=== PATIENT | male | born 2000 | race Caucasian/White ===

== ENCOUNTER 2023-07-20 17:32 | Inpatient (IN) | payer OTHER, SELFPAY ==
[2023-07-20 17:43] VITALS: BP 154/94; PULSE 111; RESP 16; TEMP 36.9; O2SAT 95
--- NOTE | 2023-07-20 17:54 | ED_ITS ---
HPI - Abdominal Pain 2 General: Chief Complaint: Abdominal Pain Stated Complaint: abd pain Time Seen by Provider: 07/20/23 17:49 Source: patient Mode of arrival: ambulatory Limitations: no limitations History of Present Illness: 23-year-old male states he had epigastri c abdominal pain over the last 2 days. He states the pain is sharp in nature is much worse with eating he states it is improved with Mylanta is rates the pain a 2 out of 10 currently no vomiting no diarrhea denies any fevers no history of abdominal surgeries. He is not on any meds currently. Associated Symptoms: Denies chills, diarrhea, dysuria, fever(s), nausea and vomiting Review of Systems 2 Const: Denies: fever(s), chills, body aches or change in appetite ENMT: Denies: throat pain or dental pain Card: Denies: chest pain Resp: Denies: dyspnea GI: Reports: abdominal pain; Denies: nausea, vomiting or diarrhea : Denies: dysuria Musc: Denies: neck pain or back pain Skin/Breast: Denies: rash Neuro: Denies: headache(s) PFSH ED 2 PFSH: Social History Smoking and tobacco/nicotine status: never used tobacco/nicotine Physical Exam 2 Const: COMMON NORMALS: no acute distress, patient oriented x3 and healthy appearing HENMT: COMMON NORMALS: normocephalic and atraumatic HEAD & SCALP: n ormocephalic and atraumatic Neck/C-Spine: COMMON NORMALS: full ROM and supple Chest: COMMONS NORMALS: normal inspection of the chest and normal palpation of entire chest wall Resp: COMMON NORMALS: normal respiratory effort, No retractions, No use of accessory muscles and clear to auscultation bilaterally AUSCULTATION: clear to auscultation bilaterally Cardio: COMMON NORMALS: regular rate, regular rhythm and No murmurs present (Cardio) RATE: regular rate RHYTHM: regular rhythm GI: COMMON NORMALS: Normal to inspection, nondistended, normoactive bowel sounds present, Soft to palpation, non-tender and no masses PALPATION: Yes Soft to palpation Extremity: COMMON NORMALS: normal to inspection and full ROM Neuro: COMMON NORMALS: patient oriented x3, moves all extremities and no focal motor deficits Psych: COMMON NORMALS: mental status grossly normal, Normal thought process present and cooperative THOUGHT PROCESS: Normal thought process present Skin: COMMON NORMALS: no rashes or lesions noted and no wounds GENERAL SKIN EXAM: no rashes or lesions noted Course 2 Vital Signs: Vital signs: Vital Signs Temperature 98.4 F 07/20/23 17:43 Pulse Rate 108 H 07/20/23 19:35 Respiratory Rate 18 07/20/23 19:35 Blood Pressure 152/95 07/20/23 19:35 Pulse Oximetry 95 07/20/23 19:35 Oxygen Delivery Me thod Room Air 07/20/23 19:35 MDM - Abdominal Pain Medical Decision Making Patient presents here with pancreatitis as seen on CT scan he is getting elevated lipase as well as consistent with his abdominal pain spoke to the hospitalist will admit at this time. Medical Records I reviewed the patient's medical records. Lab Data I reviewed the patient's lab results. 07/20/23 17:53 07/20/23 17:53 Labs/Radiology: Radiology Impressions Abdomen/Pelvis CT 07/20/23 18:11 IMPRESSION: 1. Nonspecific moderate inflammatory changes in the upper central mesentery which appear to also involve the retroperitoneal reflection. Differential diagnosis includes pancreatitis, duodenitis, and nonspecific mesenteritis. Duodenitis is the favored diagnosis based on distribution of inflammatory change. Recommend correlation with laboratory evaluation and endoscopy if indicated.. 2. Trace fluid in the left paracolic gutter and pelvis likely tracking from central mesenteric pathology. COMMENTS: Consistent with the [employer]'s Incidental Findings Committee white paper (J Am Thelma Radiol 2018): Any incidental renal lesion less than 1 cm or classified as too small to characterize, or any incidental cystic renal lesion characterized as simple-appearing, is likely benign. No follow-up imaging is recommended for these lesions per consensus recommendations based on imaging criteria. Laboratory Results WBC 21.55 10^3/uL (3.29-11.43) H 07/20/23 17:53 RBC 5.47 10^6/uL (3.85-5.65) 07/20/23 17:53 Hgb 16.30 g/dL (11.27-16.99) 07/20/23 17:53 Hct 48.1 % (37-53) 07/20/23 17:53 MCV 87.9 fl (82-101) 07/20/23 17:53 MCH 29.8 pg (27-33) 07/20/23 17:53 MCHC 33.9 g/dL (30-55) 07/20/23 17:53 RDW 12.8 % (12.1-15.1) 07/20/23 17:53 Plt Count 336 10^3/cmm (157-399) 07/20/23 17:53 MPV 10.7 fL (7.4-10.4) H 07/20/23 17:53 Neut % (Auto) 85.8 % 07/20/23 17:53 Lymph % (Auto) 7.2 % 07/20/23 17:53 [place] % (Auto) 6.0 % 07/20/23 17:53 Eos % (Auto) 0.6 % 07/20/23 17:53 Baso % (Auto) 0.1 % 07/20/23 17:53 Neut # (Auto) 18.48 10^3/uL (1.8-7.7) H 07/20/23 17:53 Lymph # (Auto) 1.6 10^3/uL (0.8-4.8) 07/20/23 17:53 [place] # (Auto) 1.3 10^3/uL (0.2-0.9) H 07/20/23 17:53 Eos # (Auto) 0.1 10^3/uL (0.0-0.8) 07/20/23 17:53 Baso # (Auto) 0.0 10^3/uL (0.0-0.1) 07/20/23 17:53 Nucleated RBC % (auto) 0 % 07/20/23 17:53 Nucleated RBCs # 0.0 /100WBC 07/20/23 17:53 Sodium 137 mmol/L (136-145) 07/20/23 17:53 Potassium 3.3 mmol/L (3.5-5.1) L 07/20/23 17:53 Chloride 101 mmol/L (98-107) 07/20/23 17:53 Carbon Dioxide 24 mmol/L (22-29) 07/20/23 17:53 Anion Gap 15.3 (5-19) 07/20/23 17:53 BUN 10 mg/dL (6-20) 07/20/23 17:53 Creatinine 1.0 mg/dL (0.7-1.2) 07/20/23 17:53 GFR Calculation 93.4 mL/min (90-130) 07/20/23 17:53 Glucose 138 mg/dL (65-115) H 07/20/23 17:53 Calculated Osmolality 285 mOsm/kg (285-295) 07/20/23 17:53 Calcium 9.2 mg/dL (8.5-10.5) 07/20/23 17:53 Total Bilirubin 0.9 mg/dL (0.15-1.2) 07/20/23 17:53 AST 31 U/L (0-40) 07/20/23 17:53 ALT 79 U/L (0-41) H 07/20/23 17:53 Alkaline Phosphatase 129 U/L (40-130) 07/20/23 17:53 Total Protein 7.7 g/dL (6.6-8.7) 07/20/23 17:53 Albumin 4.1 g/dL (3.5-5.2) 07/20/23 17:53 Globulin 3.6 g/dL (1.3-4.6) 07/20/23 17:53 Lipase 253 U/L (13-60) H 07/20/23 17:53 Urine Color [place] (Yellow) A 07/20/23 18:54 Urine Appearance Clear (CLEAR) 07/20/23 18:54 Urine pH 5 (5-7) 07/20/23 18:54 Ur Specific [place] 1.020 (1.005-1.030) 07/20/23 18:54 Urine Protein Neg (Negative) 07/20/23 18:54 Urine Glucose (UA) Norm (Normal) 07/20/23 18:54 Urine Ketones Negative (Negative) 07/20/23 18:54 Urine Blood 3+ (Negative) H 07/20/23 18:54 Urine Nitrate Negative (Negative) 07/20/23 18:54 Urine Bilirubin 1+ (Negative) H 07/20/23 18:54 Urine Urobilinogen 1 mg/dL (Negative) H 07/20/23 18:54 Ur Leukocyte Esterase Negative (Negative) 07/20/23 18:54 Urine RBC 0-4 /hpf (0-2) H 07/20/23 18:54 Urine WBC 0-4 /hpf (0-5) H 07/20/23 18:54 Ur Squamous Epith Cells None /hpf (0-5) 07/20/23 18:54 Amorphous Sediment Not Reportable 07/20/23 18:54 Urine Bacteria Trace /hpf (NONE) 07/20/23 18:54 Urine Mucus 1+ /hpf 07/20/23 18:54 All radiology interpretation(s) finalized by discharge Discharge Plan Discharge Patient Disposition: Admitted As Inpatient Clinical Impression: Pancreatitis Condition: Stable Prescriptions: New hydrocodone-acetaminophen 5-325 mg tablet 1 tab PO Q6H PRN (Reason: pain) Qty: 14 0RF ondansetron 4 mg tablet,disintegrating 4 mg PO Q6H PRN (Reason: nausea and vomiting) Qty: 14 0RF Discharge Orders: Discharge ED (Routine); Ordered 07/20/23 Ordered By: Ish Singh Referrals: Nahun Juan DO [Primary Care Provider] - Discharge Diet: Advance as tolerated Discharge Activity: Resume usual activity Patient Instructions: Pancreatitis (ED), Opioid Safety Coding Level of Care Code ED Cafeteria Operator for Carlos Mckeon
[2023-07-20 18:09] LABS: Basophils % 0.1 %; Eosinophils # 0.1 10^3/uL (0.0-0.8); Eosinophils % 0.6 %; Hematocrit 48.1 % (37-53); Lymphocytes # 1.6 10^3/uL (0.8-4.8); Lymphocytes % 7.2 %; Mean Corpuscular HGB Conc 33.9 g/dL (30-55); Mean Corpuscular Hemoglobin 29.8 pg (27-33); Mean Corpuscular Volume 87.9 fl (82-101); Mean Platelet Volume 10.7 fL (7.4-10.4); Monocytes # 1.3 10^3/uL (0.2-0.9); Neutrophils # 18.48 10^3/uL (1.8-7.7); Neutrophils % 85.8 %; Nucleated Red Blood Cells % 0 %; Platelet Count 336 10^3/cmm (157-399); Red Blood Count 5.47 10^6/uL (3.85-5.65); Red Cell Distribution Width 12.8 % (12.1-15.1); White Blood Count 21.55 10^3/uL (3.29-11.43)
--- NOTE | 2023-07-20 18:11 | CTR_ITS ---
PROCEDURE INFORMATION: Exam: CT Abdomen And Pelvis With Contrast Exam date and time: 07/20/2023 6:23 PM Age: 23 years old Clinical indication: Abdominal pain; Generalized; Additional info: Abd pain TECHNIQUE: Imaging protocol: Computed tomography of the abdomen and pelvis with contrast. Radiation optimization: All CT scans at this facility use at least one of these dose optimization techniques: automated exposure control; mA and/or kV adjustment per patient size (includes targeted exams where dose is matched to clinical indication); or iterative reconstruction. Contrast material: OMNI 350; Contrast volume: 100 ml; Contrast route: INTRAVENOUS (IV); COMPARISON: No relevant prior studies available. RADIATION DOSE METRICS: Total DLP (mGy-cm): 1234 FINDINGS: Lungs: There are mild atelectatic changes in the blfs-[id number]-gvln-right lung bases. Liver: The liver is normal. No hepatic masses are identified. Gallbladder and bile ducts: The gallbladder is contracted. There is no ductal dilatation. Pancreas: Pancreas itself appears within normal limits. There is suggested peripancreatic inflammatory changes though these extend into the peritoneum and may be unrelated to the pancreas. Spleen: The spleen is normal. Adrenal glands: The adrenal glands are normal. Kidneys and ureters: Normal. No hydronephrosis. 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 8 mm low-density lesion in the right mid kidney too small for accurate characterization, likely representing a simple cyst. Stomach and bowel: Unremarkable. No obstruction. No mucosal thickening. Appendix: A normal appendix is identified. Intraperitoneal space: Some of the inflammatory change appears to be centered around the 3rd and 4th portions of the duodenal though also extends into the central mesentery. There is trace fluid tracking into left paracolic gutter and retroperitoneal reflection. Small pelvic free fluid. Vasculature: Unremarkable. No abdominal aortic aneurysm. Lymph nodes: Unremarkable. No enlarged lymph nodes. Urinary bladder: Unremarkable as visualized. Reproductive: Unremarkable as visualized. Bones/joints: Unremarkable. No acute fracture. Soft tissues: Unremarkable. CT/CT abdomen pelvis w con* [id number] IMPRESSION: 1. Nonspecific moderate inflammatory changes in the upper central mesentery which appear to also involve the retroperitoneal reflection. Differential diagnosis includes pancreatitis, duodenitis, and nonspecific mesenteritis. Duodenitis is the favored diagnosis based on distribution of inflammatory change. Recommend correlation with laboratory evaluation and endoscopy if indicated.. 2. Trace fluid in the left paracolic gutter and pelvis likely tracking from central mesenteric pathology. COMMENTS: Consistent with the [employer]'s Incidental Findings Committee white paper (J Am Thelma Radiol 2018): Any incidental renal lesion less than 1 cm or classified as too small to characterize, or any incidental cystic renal lesion characterized as simple-appearing, is likely benign. No follow-up imaging is recommended for these lesions per consensus recommendations based on imaging criteria.
[2023-07-20 18:16] VITALS: BP 139/90; PULSE 118; O2SAT 94
[2023-07-20] MEDS: sodium chloride 0.9% 1,000 ML 999 ML IV (18:30)
[2023-07-20] MEDS: lidocaine 2% viscous 15 ML, aluminum-mag hydrox-simethicon 30 ML, sucralfate oral liq 1 GM PO (18:31)
[2023-07-20] MEDS: ondansetron 2 mg/ML SDV 2 mL 4 MG IVP (18:31)
[2023-07-20] MEDS: pantoprazole 40 mg SDV 80 MG IVP (18:31)
[2023-07-20] MEDS: iohexol 350 mg/mL 500 mL Btl (per mL) IV (18:32)
[2023-07-20 18:34] LABS: Alanine Aminotransferase 79 U/L (0-41); Albumin Level 4.1 g/dL (3.5-5.2); Alkaline Phosphatase 129 U/L (40-130); Anion Gap 15.3 (5-19); Aspartate Amino Transferase 31 U/L (0-40); Blood Urea Nitrogen 10 mg/dL (6-20); Calcium 9.2 mg/dL (8.5-10.5); Carbon Dioxide 24 mmol/L (22-29); Chloride 101 mmol/L (98-107); Creatinine Clr Calc Pharmacy 158.3763; Globulin 3.6 g/dL (1.3-4.6); Glomerular Filtration Rate 93.4 mL/min (90-130); Glucose 138 mg/dL (65-115); Lipase 253 U/L (13-60); Osmolality Calculated 285 mOsm/kg (285-295); Potassium 3.3 mmol/L (3.5-5.1); Sodium 137 mmol/L (136-145); Total Bilirubin 0.9 mg/dL (0.15-1.2); Total Protein 7.7 g/dL (6.6-8.7)
[2023-07-20 18:56] VITALS: BP 134/96; PULSE 115; RESP 18; O2SAT 94
[2023-07-20 19:28] LABS: Add Urine Microscopic? YES; Bilirubin Urine 1+ (Negative); Blood Urine 3+ (Negative); Glucose Urine UA Norm (Normal); Ketones Urine Negative (Negative); Leukocyte Esterase Urine Negative (Negative); Nitrate Urine Negative (Negative); Protein Urine Neg (Negative); Urine Appearance Clear (CLEAR); Urine Color Orange (Yellow); Urobilinogen Urine 1 mg/dL (Negative); pH Urine 5 (5-7)
[2023-07-20 19:33] LABS: Bacteria Urine TRACE /hpf; Mucus Urine 1+ /hpf; RBC Urine 0-4 /hpf (0-2); WBC Urine 0-4 /hpf (0-5)
[2023-07-20 19:34] LABS: Add Urine Culture? No
[2023-07-20 19:35] VITALS: BP 152/95; PULSE 108; RESP 18; O2SAT 95
[2023-07-20 19:49] LABS: Cholesterol 140 mg/dL (0-200); Triglycerides 54 mg/dL (0-150)
[2023-07-20 20:37] LABS: Chol HDL Ratio 2.75 mg/dL (1.0-5.00); HDL Cholesterol 51 mg/dL (60-100); LDL Cholesterol Calculated 78 mg/dL (50-129); LDL HDL Ratio 1.53 RATIO (0.00-3.22)
[2023-07-20 21:50] VITALS: BMI 37.8
[2023-07-20 21:56] VITALS: BP 135/86; PULSE 108; RESP 19; TEMP 37.1; O2SAT 94
--- NOTE | 2023-07-20 22:00 | PC.NURSE ---
2145:Pt to room 276-2 via wheelchair with ED staff. Mother accompanying pt. Oriented to room and needs met at that time.
[2023-07-20 23:12] LABS: Amphetamines Screen Urine Negative (Negative); Barbiturates Screen Urine Negative (Negative); Benzodiazepines Screen Urine Negative (Negative); Cocaine Screen Urine Negative (Negative); Opiate Screen Urine Negative (Negative); PCP Screen Urine Negative (Negative); THC Screen Urine Negative (Negative)
[2023-07-20 23:14] LABS: Alcohol Level < 10 mg/dL (0-10)
[2023-07-20] MEDS: sodium chlor 0.9% + KCl 20 mEq 20 MEQ/1,000 ML BAG 100 MEQ IV (23:49)
[2023-07-21] VITALS: BP 142/89; PULSE 114; RESP 19; TEMP 37.2; O2SAT 94
[2023-07-21] MEDS: ketorolac 30 mg/mL INJ 15 MG IVP ×2 (00:42→17:02)
[2023-07-21 04:00] VITALS: BP 128/76; PULSE 98; RESP 16; TEMP 36.7; O2SAT 94
--- NOTE | 2023-07-21 04:30 | PM.HP ---
Providers/Chief Complaint Admitting Physician: Ciera Khan MD Primary Care Provider: Nahun Juan DO Chief Complaint: abd pain History of Present Illness Shyam Sr is a 23 year old male who is presenting to the hospital with chief complaint of abdominal pain that started 3 days ago. States that abdominal pain is generalized, located in the middle of this abdomen, used to be constant with intermittent worsening with changing position. No vomiting. He has been taking Mylanta at home with some partial relief in symptoms but not significantly so. Denies any diarrhea. Denies any other sick contacts with similar symptoms. No fever. It was noted to have leukocytosis and elevated lipase on lab work; CT of the abdomen and pelvis was performed which showed nonspecific inflammatory changes in the upper central mesentery which also appeared to involve the retroperitoneal reflection. There was noted to be some peripancreatic inflammatory changes also extending into the peritoneum. Differentials mainly for acute pancreatitis versus duodenitis with mesenteritis. He denies any known past history of gallstones. No history of alcohol or drug intake. Triglyceride level checked and normal Review of Systems General: Reports: 10 or more systems reviewed and unremarkable except in HPI and below Const: Denies: fever(s), chills or body aches Eyes: Denies: change in vision, blurry vision or photophobia ENMT: Reports: hoarseness; Denies: throat pain, enlarged tonsils, odynophagia or nasal congestion Card: Denies: chest pain, palpitations, irregular heart rhythm, edema, swelling of feet/ankles, lightheadedness, pre-syncope, dyspnea on exertion or orthopnea Resp: Denies: dyspnea, productive cough, non-productive cough, wheezing, stridor, pain on inspiration, change in phlegm color, hemoptysis or chest congestion GI: Denies: abdominal pain, nausea, vomiting, hematemesis, coffee ground emesis, dysphagia, heartburn, diarrhea, constipation, GI cramping, change in stool character, hematochezia or melena : Denies: flank pain, dysuria, urinary frequency, urinary urgency, urinary hesitancy or hematuria Musc: Denies: neck pain, back pain, extremity pain, joint swelling, joint warmth or deformity Neuro: Denies: headache(s), numbness in extremities, weakness in extremities, sensory changes, difficulty walking, frequent falls, dizziness, vertigo, behavioral changes, Slurred speech present or seizure-like activity Psych: Denies: anxiety, depression, suicidal ideation or homicidal ideation Endo: Denies: polyuria, polydipsia, tired all the time, cold intolerance or hot flashes Dc/Lymph: Denies: easy bruising or easy bleeding Medications/Allergies Home Medications Medication Instructions Recorded Confirmed Last Taken Type hydrocodone 5 mg-acetaminophen 325 1 tab PO Q6H PRN pain #14 tabs 07/20/23 Unknown Rx mg tablet ondansetron 4 mg disintegrating 4 mg PO Q6H PRN nausea and 07/20/23 Unknown Rx tablet vomiting #14 tabs Allergies Allergy/AdvReac Type Severity Reaction Status Date / Time clarithromycin [From Biaxin] Allergy RASH Verified 07/20/23 17:45 PFSH Acute PFSH: Social History Smoking and tobacco/nicotine status: never used tobacco/nicotine Vitals/I&O/Wt Last Vital Signs Temp 98.1 F 07/21/23 04:00 Pulse 98 07/21/23 04:00 Resp 16 07/21/23 04:00 BP 128/76 07/21/23 04:00 Pulse Ox 94 07/21/23 04:00 O2 Del Method Room Air 07/20/23 23:41 07/20/23 07/20/23 07/21/23 14:59 22:59 06:59 Intake Total 1000 / 1000 Balance 1000 / 1000 Weight last 48 hrs Weight 126.598 kg Weight 126.598 kg Weight 125.191 kg Physical Exam Narrative: General: No acute distress, AO x3 HEENT: PERRLA, pupils bilaterally equal and reactive, pallors not present Abdomen: Soft, tender to palpation in the epigastric region, no organomegaly, bowel sounds present Neuro: No focal deficits, no facial deformity, AO x3, power 5/5 in all limbs Data 07/21/23 05:10 07/21/23 05:10 Other Labs: Radiology Impressions Abdomen/Pelvis CT 07/20/23 18:11 IMPRESSION: 1. Nonspecific moderate inflammatory changes in the upper central mesentery which appear to also involve the retroperitoneal reflection. Differential diagnosis includes pancreatitis, duodenitis, and nonspecific mesenteritis. Duodenitis is the favored diagnosis based on distribution of inflammatory change. Recommend correlation with laboratory evaluation and endoscopy if indicated.. 2. Trace fluid in the left paracolic gutter and pelvis likely tracking from central mesenteric pathology. COMMENTS: Consistent with the [employer]'s Incidental Findings Committee white paper (J Am Thelma Radiol 2018): Any incidental renal lesion less than 1 cm or classified as too small to characterize, or any incidental cystic renal lesion characterized as simple-appearing, is likely benign. No follow-up imaging is recommended for these lesions per consensus recommendations based on imaging criteria. Laboratory Results WBC 20.37 10^3/uL (3.29-11.43) H 07/21/23 05:10 RBC 5.05 10^6/uL (3.85-5.65) 07/21/23 05:10 Hgb 15.00 g/dL (11.27-16.99) 07/21/23 05:10 Hct 45.1 % (37-53) 07/21/23 05:10 MCV 89.3 fl (82-101) 07/21/23 05:10 MCH 29.7 pg (27-33) 07/21/23 05:10 MCHC 33.3 g/dL (30-55) 07/21/23 05:10 RDW 12.9 % (12.1-15.1) 07/21/23 05:10 Plt Count 305 10^3/cmm (157-399) 07/21/23 05:10 MPV 10.5 fL (7.4-10.4) H 07/21/23 05:10 Neut % (Auto) 81.5 % 07/21/23 05:10 Lymph % (Auto) 9.2 % 07/21/23 05:10 [place] % (Auto) 7.8 % 07/21/23 05:10 Eos % (Auto) 0.9 % 07/21/23 05:10 Baso % (Auto) 0.2 % 07/21/23 05:10 Neut # (Auto) 16.59 10^3/uL (1.8-7.7) H 07/21/23 05:10 Lymph # (Auto) 1.9 10^3/uL (0.8-4.8) 07/21/23 05:10 [place] # (Auto) 1.6 10^3/uL (0.2-0.9) H 07/21/23 05:10 Eos # (Auto) 0.2 10^3/uL (0.0-0.8) 07/21/23 05:10 Baso # (Auto) 0.0 10^3/uL (0.0-0.1) 07/21/23 05:10 Nucleated RBC % (auto) 0 % 07/21/23 05:10 Nucleated RBCs # 0.0 /100WBC 07/21/23 05:10 ESR 27 mm/hr (0-10) H 07/21/23 05:10 Sodium 139 mmol/L (136-145) 07/21/23 05:10 Potassium 4.1 mmol/L (3.5-5.1) 07/21/23 05:10 Chloride 102 mmol/L (98-107) 07/21/23 05:10 Carbon Dioxide 25 mmol/L (22-29) 07/21/23 05:10 Anion Gap 16.1 (5-19) 07/21/23 05:10 BUN 12 mg/dL (6-20) 07/21/23 05:10 Creatinine 1.0 mg/dL (0.7-1.2) 07/21/23 05:10 GFR Calculation 93.4 mL/min (90-130) 07/21/23 05:10 Glucose 80 mg/dL (65-115) 07/21/23 05:10 Calculated Osmolality 287 mOsm/kg (285-295) 07/21/23 05:10 Lactic Acid 1.1 mmol/L (0.5-2.2) 07/21/23 05:10 Calcium 9.0 mg/dL (8.5-10.5) 07/21/23 05:10 Total Bilirubin 1.0 mg/dL (0.15-1.2) 07/21/23 05:10 AST 18 U/L (0-40) 07/21/23 05:10 ALT 53 U/L (0-41) H 07/21/23 05:10 Alkaline Phosphatase 119 U/L (40-130) 07/21/23 05:10 C-Reactive Protein 208.3 mg/L (0.0-4.9) H 07/21/23 05:10 Total Protein 7.4 g/dL (6.6-8.7) 07/21/23 05:10 Albumin 3.8 g/dL (3.5-5.2) 07/21/23 05:10 Globulin 3.6 g/dL (1.3-4.6) 07/21/23 05:10 Triglycerides 54 mg/dL (0-150) 07/20/23 19: Cholesterol 140 mg/dL (0-200) 07/20/23 19: LDL Cholesterol, Calc 78 mg/dL (50-129) 07/20/23 19: HDL Cholesterol 51 mg/dL (60-100) L 07/20/23 19: LDL/HDL Ratio 1.53 RATIO (0.00-3.22) 07/20/23 19: Cholesterol/HDL Ratio 2.75 mg/dL (1.0-5.00) 07/20/23 19:28 Lipase 253 U/L (13-60) H 07/20/23 17:53 TSH 2.68 uIU/mL (0.27-4.20) 07/21/23 05:10 Urine Color [place] (Yellow) A 07/20/23 18:54 Urine Appearance Clear (CLEAR) 07/20/23 18:54 Urine pH 5 (5-7) 07/20/23 18:54 Ur Specific [place] 1.020 (1.005-1.030) 07/20/23 18:54 Urine Protein Neg (Negative) 07/20/23 18:54 Urine Glucose (UA) Norm (Normal) 07/20/23 18:54 Urine Ketones Negative (Negative) 07/20/23 18:54 Urine Blood 3+ (Negative) H 07/20/23 18:54 Urine Nitrate Negative (Negative) 07/20/23 18:54 Urine Bilirubin 1+ (Negative) H 07/20/23 18:54 Urine Urobilinogen 1 mg/dL (Negative) H 07/20/23 18:54 Ur Leukocyte Esterase Negative (Negative) 07/20/23 18:54 Urine RBC 0-4 /hpf (0-2) H 07/20/23 18:54 Urine WBC 0-4 /hpf (0-5) H 07/20/23 18:54 Ur Squamous Epith Cells None /hpf (0-5) 07/20/23 18:54 Amorphous Sediment Not Reportable 07/20/23 18:54 Urine Bacteria Trace /hpf (NONE) 07/20/23 18:54 Urine Mucus 1+ /hpf 07/20/23 18:54 Urine Opiates Screen Negative ng/mL (Negative) 07/20/23 18:54 Ur Barbiturates Screen Negative ng/mL (Negative) 07/20/23 18:54 Ur Phencyclidine Scrn Negative ng/mL (Negative) 07/20/23 18:54 Ur Amphetamines Screen Negative ng/mL (Negative) 07/20/23 18:54 U Benzodiazepines Scrn Negative ng/mL (Negative) 07/20/23 18:54 Urine Cocaine Screen Negative ng/mL (Negative) 07/20/23 18:54 U Marijuana (THC) Screen Negative ng/mL (Negative) 07/20/23 18:54 Ethyl Alcohol < 10 mg/dL (0-10) 07/20/23 17:53 A&P Assessment and plan (1) Pancreatitis: Admit to [facility] IV fluid with normal saline + 20 KCL at 100 cc an hour N.p.o. for bowel rest Pain control with as needed morphine alternating with IV Toradol. As needed Tylenol for pain and fever. As needed Zofran for nausea management. CT of the abdomen and pelvis shows signs of acute pancreatitis vs non specific mesenteritis. Given elevated lipase and peripancreatic inflammation, favor pancreatitis as likely diagnosis No obvious inciting cause -biliary tree is nondilated, triglyceride within normal range. Denies any recent alcohol consumption, will check alcohol level and urine drug screen. Does not take any regular medications at home, unlikely to be drug-induced Check NAMRATA panel for potential autoimmune process Elevated white blood cell count likely as a result of dehydration/SIRS. Will monitor. Holding off on antibiotics for now. Qualifiers: Acute pancreatitis complication: unspecified Chronicity: acute Pancreatitis type: unspecified pancreatitis type Qualified Code(s): K85.90 - Acute pancreatitis without necrosis or infection, unspecified Plan DVT prophylaxis: SCDs, overall low risk Full code Attestations Medical Necessity Statement*: Greater than 2 midnight stay is anticipated Coding Level of Care Code Acute Code for [facility] Diagnoses Pancreatitis K85.90 Acute pancreatitis complication: unspecified Chronicity: acute Pancreatitis type: unspecified pancreatitis type
[2023-07-21 05:23] LABS: Basophils % 0.2 %; Eosinophils # 0.2 10^3/uL (0.0-0.8); Eosinophils % 0.9 %; Erythrocyte Sedimentation Rate 27 mm/hr (0-10); Hematocrit 45.1 % (37-53); Lymphocytes # 1.9 10^3/uL (0.8-4.8); Lymphocytes % 9.2 %; Mean Corpuscular HGB Conc 33.3 g/dL (30-55); Mean Corpuscular Hemoglobin 29.7 pg (27-33); Mean Corpuscular Volume 89.3 fl (82-101); Mean Platelet Volume 10.5 fL (7.4-10.4); Monocytes # 1.6 10^3/uL (0.2-0.9); Monocytes % 7.8 %; Neutrophils # 16.59 10^3/uL (1.8-7.7); Neutrophils % 81.5 %; Nucleated Red Blood Cells % 0 %; Platelet Count 305 10^3/cmm (157-399); Red Blood Count 5.05 10^6/uL (3.85-5.65); Red Cell Distribution Width 12.9 % (12.1-15.1); White Blood Count 20.37 10^3/uL (3.29-11.43)
[2023-07-21 05:41] LABS: Lactic Sepsis W/Reflex 1.1 mmol/L (0.5-2.2)
[2023-07-21 05:49] LABS: Alanine Aminotransferase 53 U/L (0-41); Albumin Level 3.8 g/dL (3.5-5.2); Alkaline Phosphatase 119 U/L (40-130); Anion Gap 16.1 (5-19); Aspartate Amino Transferase 18 U/L (0-40); Blood Urea Nitrogen 12 mg/dL (6-20); C Reactive Protein 208.3 mg/L (0.0-4.9); Carbon Dioxide 25 mmol/L (22-29); Chloride 102 mmol/L (98-107); Creatinine Clr Calc Pharmacy 159.2987; Globulin 3.6 g/dL (1.3-4.6); Glomerular Filtration Rate 93.4 mL/min (90-130); Glucose 80 mg/dL (65-115); Osmolality Calculated 287 mOsm/kg (285-295); Potassium 4.1 mmol/L (3.5-5.1); Sodium 139 mmol/L (136-145); Thyroid Stimulating Hormone 2.68 uIU/mL (0.27-4.20); Total Protein 7.4 g/dL (6.6-8.7)
[2023-07-21 08:00] VITALS: BP 132/80; PULSE 96; RESP 16; TEMP 36.9; O2SAT 96
[2023-07-21] MEDS: sodium chlor 0.9% + KCl 20 mEq 20 MEQ/1,000 ML BAG 100 MEQ IV ×2 (10:00→20:24)
[2023-07-21 11:18] VITALS: BP 125/70; PULSE 98; RESP 16; TEMP 37.3; O2SAT 94
[2023-07-21] MEDS: piperacillin-tazobactam 3.375 GM in sodium chloride 0.9% (plus) 50 ML IV ×2 (11:29→20:24)
--- NOTE | 2023-07-21 15:03 | P.PN_ITS ---
Subjective 2 Subjective: Admitted overnight. H&P labs appreciated. Examination patient lying comfortably in bed. States pain is well-controlled. Denies any nausea. Started on clear liquid diet today and is able to tolerate. Vitals/I&O/Wt Last Vital Signs Temp 99.2 F 07/21/23 11:18 Pulse 98 07/21/23 11:18 Resp 16 07/21/23 11:18 BP 125/70 07/21/23 11:18 Pulse Ox 94 07/21/23 11:18 O2 Del Method Room Air 07/21/23 11:18 07/21/23 07/21/23 07/21/23 06:59 14:59 22:59 Intake Total 1959 Balance 1959 Weight last 48 hrs Weight 126.598 kg Weight 126.598 kg Weight 125.191 kg Physical Exam 2 Narrative: General: No acute distress, AO x3 HEENT: PERRLA, pupils bilaterally equal and reactive, pallors not present Abdomen: Soft, tender to palpation in the epigastric region, no organomegaly, bowel sounds present Neuro: No focal deficits, no facial deformity, AO x3, power 5/5 in all limbs Data 07/21/23 05:10 07/21/23 05:10 A&P Assessment and plan (1) Pancreatitis: Unknown cause. Triglyceride levels normal. Denies any history of alcohol use or smoking. LFTs normal. Denies any history of gallstones. Biliary tree nondilated. NAMRATA panel pending. Tolerating clear liquid diet. Will plan to continue clear liquid diet for now. IV hydration with normal saline with potassium at 100 cc/h. Zofran as needed, IV Protonix. Toradol as needed for pain. Patient does have mild leukocytosis which is most likely reactionary but given significant pancreatitis for now will empirically cover with IV Zosyn. Patient remains afebrile will discontinue within next 24 hours. Qualifiers: Acute pancreatitis complication: unspecified Chronicity: acute P ancreatitis type: unspecified pancreatitis type Qualified Code(s): K85.90 - Acute pancreatitis without necrosis or infection, unspecified Plan DVT prophylaxis: SCDs, overall low risk Full code Attestations 2 Medical Necessity Statement*: Requires further hospitalization for management of pancreatitis while diet is gradually advanced Diagnoses Pancreatitis K85.90 Acute pancreatitis complication: unspecified Chronicity: acute Pancreatitis type: unspecified pancreatitis type
[2023-07-21 16:00] VITALS: BP 127/82; PULSE 92; RESP 16; TEMP 37.1; O2SAT 94
[2023-07-21] MEDS: pantoprazole 40 mg SDV IVP (17:02)
[2023-07-21 20:00] VITALS: BP 110/70; PULSE 82; RESP 18; TEMP 36.6; O2SAT 96
[2023-07-22] VITALS: BP 120/78; PULSE 67; RESP 17; TEMP 36.4; O2SAT 96
[2023-07-22] MEDS: piperacillin-tazobactam 3.375 GM in sodium chloride 0.9% (plus) 50 ML IV ×2 (03:00→11:03)
[2023-07-22 04:00] VITALS: BP 122/80; PULSE 76; RESP 15; TEMP 36.6; O2SAT 15
[2023-07-22 06:00] VITALS: BMI 37.8
[2023-07-22] MEDS: sodium chlor 0.9% + KCl 20 mEq 20 MEQ/1,000 ML BAG 100 MEQ IV (06:43)
[2023-07-22 07:05] LABS: Basophils # 0.1 10^3/uL (0.0-0.1); Basophils % 0.3 %; Eosinophils # 0.3 10^3/uL (0.0-0.8); Eosinophils % 2.1 %; Hematocrit 43.6 % (37-53); Lymphocytes # 1.9 10^3/uL (0.8-4.8); Lymphocytes % 12.6 %; Mean Corpuscular HGB Conc 33.3 g/dL (30-55); Mean Corpuscular Hemoglobin 29.5 pg (27-33); Mean Corpuscular Volume 88.6 fl (82-101); Mean Platelet Volume 10.9 fL (7.4-10.4); Monocytes # 1.2 10^3/uL (0.2-0.9); Neutrophils # 11.43 10^3/uL (1.8-7.7); Neutrophils % 76.7 %; Nucleated Red Blood Cells % 0 %; Platelet Count 268 10^3/cmm (157-399); Red Blood Count 4.92 10^6/uL (3.85-5.65); Red Cell Distribution Width 12.6 % (12.1-15.1)
[2023-07-22 07:18] VITALS: BP 149/92; PULSE 95; RESP 16; TEMP 36.9; O2SAT 98
[2023-07-22 08:12] LABS: Alanine Aminotransferase 35 U/L (0-41); Albumin Level 3.7 g/dL (3.5-5.2); Alkaline Phosphatase 109 U/L (40-130); Anion Gap 15.9 (5-19); Aspartate Amino Transferase 12 U/L (0-40); Blood Urea Nitrogen 8 mg/dL (6-20); Carbon Dioxide 25 mmol/L (22-29); Chloride 103 mmol/L (98-107); Creatinine Clr Calc Pharmacy 159.2685; Globulin 3.8 g/dL (1.3-4.6); Glomerular Filtration Rate 93.4 mL/min (90-130); Glucose 93 mg/dL (65-115); Osmolality Calculated 288 mOsm/kg (285-295); Potassium 3.9 mmol/L (3.5-5.1); Sodium 140 mmol/L (136-145); Total Bilirubin 0.9 mg/dL (0.15-1.2); Total Protein 7.5 g/dL (6.6-8.7)
--- NOTE | 2023-07-22 09:38 | P.DS_ITS ---
Discharge Providers Date of Admission: 07/20/23 20:21 Date of Discharge: July 22, 2023 Attending Provider at Admission: Abilio Beckford MD Attending Provider at Discharge: Abilio Beckford MD Primary Care Provider: Nahun Juan DO Diagnoses at Discharge Discharge Diagnosis (1) Pancreatitis: Status: Acute Qualifiers: Acute pancreatitis complication: unspecified Chronicity: acute Pancreatitis type: unspecified pancreatitis type Qualified Code(s): K85.90 - Acute pancreatitis without necrosis or infection, unspecified Reason for Visit Reason for Visit: abd pain Brief History: Shyam Sr is a 23 year old male who is presenting to the hospital with chief complaint of abdominal pain that started 3 days ago. States that abdominal pain is generalized, located in the middle of this abdomen, used to be constant with intermittent worsening with changing position. No vomiting. He has been taking Mylanta at home with some partial relief in symptoms but not significantly so. Denies any diarrhea. Denies any other sick contacts with similar symptoms. No fever. It was noted to have leukocytosis and elevated lipase on lab work; CT of the abdomen and pelvis was performed which showed nonspecific inflammatory changes in the upper central mesentery which also appeared to involve the retroperitoneal reflection. There was noted to be some peripancreatic inflammatory changes also extending into the peritoneum. Differentials mainly for acute pancreatitis versus duodenitis with mesenteritis. He denies any known past history of gallstones. No history of alcohol or drug intake. Triglyceride level checked and normal Hospital Course Hospital Course Patient was admitted to the hospital further evaluation and management of abdominal pain in setting of pancreatitis. He was treated conservatively by keeping nothing by mouth, IV hydration and pain management. Patient responded to the treatment well and has not needed any pain medication in the last 12 hours. He has been tolerating full liquid diet well. He has been discharged in hemodynamically stable condition on full liquid diet with advised to continue full liquid diet for next 2 to 3 days and then to a softer diet for next 10 days with advised to get back on his regular diet within next 2 weeks. He is to take Protonix daily with Zofran as needed. Toradol has also been prescribed 3 times a day as needed for pain for next 3 days. Discharge plan discussed in detail with patient and patient's mother at bedside. All the questions were answered. Physical Exam Narrative: General: No acute distress, AO x3 HEENT: PERRLA, pupils bilaterally equal and reactive, pallors not present Abdomen: Soft, tender to palpation in the epigastric region, no organomegaly, bowel sounds present Neuro: No focal deficits, no facial deformity, AO x3, power 5/5 in all limbs Discharge Data Studies Completed and Pending Completed Studies During Hospitalization Category Date Time Status CT abdomen pelvis w con* [id number] Stat Cat Scan 07/20/23 18:11 Completed Pending at discharge Category Date Time Status NAMRATA Profile Rheumatology AM LABS Lab 07/21/23 05:10 Received Radiology Impressions Abdomen/Pelvis CT 07/20/23 18:11 IMPRESSION: 1. Nonspecific moderate inflammatory changes in the upper central mesentery which appear to also involve the retroperitoneal reflection. Differential diagnosis includes pancreatitis, duodenitis, and nonspecific mesenteritis. Duodenitis is the favored diagnosis based on distribution of inflammatory change. Recommend correlation with laboratory evaluation and endoscopy if indicated.. 2. Trace fluid in the left paracolic gutter and pelvis likely tracking from central mesenteric pathology. COMMENTS: Consistent with the [employer]'s Incidental Findings Committee white paper (J Am Thelma Radiol 2018): Any incidental renal lesion less than 1 cm or classified as too small to characterize, or any incidental cystic renal lesion characterized as simple-appearing, is likely benign. No follow-up imaging is recommended for these lesions per consensus recommendations based on imaging criteria. Laboratory Results WBC 14.90 10^3/uL (3.29-11.43) H 07/22/23 06:52 Corrected WBC Cancelled 07/22/23 06:18 RBC 4.92 10^6/uL (3.85-5.65) 07/22/23 06:52 Hgb 14.50 g/dL (11.27-16.99) 07/22/23 06:52 Hct 43.6 % (37-53) 07/22/23 06:52 MCV 88.6 fl (82-101) 07/22/23 06:52 MCH 29.5 pg (27-33) 07/22/23 06:52 MCHC 33.3 g/dL (30-55) 07/22/23 06:52 RDW 12.6 % (12.1-15.1) 07/22/23 06:52 Plt Count 268 10^3/cmm (157-399) 07/22/23 06:52 MPV 10.9 fL (7.4-10.4) H 07/22/23 06:52 Gran % Cancelled 07/22/23 06:18 Neut % (Auto) 76.7 % 07/22/23 06:52 Lymph % (Auto) 12.6 % 07/22/23 06:52 [place] % (Auto) 8.0 % 07/22/23 06:52 Eos % (Auto) 2.1 % 07/22/23 06:52 Baso % (Auto) 0.3 % 07/22/23 06:52 Neut # (Auto) 11.43 10^3/uL (1.8-7.7) H 07/22/23 06:52 Lymph # (Auto) 1.9 10^3/uL (0.8-4.8) 07/22/23 06:52 [place] # (Auto) 1.2 10^3/uL (0.2-0.9) H 07/22/23 06:52 Eos # (Auto) 0.3 10^3/uL (0.0-0.8) 07/22/23 06:52 Baso # (Auto) 0.1 10^3/uL (0.0-0.1) 07/22/23 06:52 Absolute Gran (auto) Cancelled 07/22/23 06:18 Nucleated RBC % (auto) 0 % 07/22/23 06:52 Nucleated RBCs # 0.0 /100WBC 07/22/23 06:52 ESR 27 mm/hr (0-10) H 07/21/23 05:10 Sodium 140 mmol/L (136-145) 07/22/23 07:23 Potassium 3.9 mmol/L (3.5-5.1) 07/22/23 07:23 Chloride 103 mmol/L (98-107) 07/22/23 07:23 Carbon Dioxide 25 mmol/L (22-29) 07/22/23 07:23 Anion Gap 15.9 (5-19) 07/22/23 07:23 BUN 8 mg/dL (6-20) 07/22/23 07:23 Creatinine 1.0 mg/dL (0.7-1.2) 07/22/23 07:23 GFR Calculation 93.4 mL/min (90-130) 07/22/23 07:23 Glucose 93 mg/dL (65-115) 07/22/23 07:23 Calculated Osmolality 288 mOsm/kg (285-295) 07/22/23 07:23 Lactic Acid 1.1 mmol/L (0.5-2.2) 07/21/23 05:10 Calcium 9.0 mg/dL (8.5-10.5) 07/22/23 07:23 Total Bilirubin 0.9 mg/dL (0.15-1.2) 07/22/23 07:23 AST 12 U/L (0-40) 07/22/23 07:23 ALT 35 U/L (0-41) 07/22/23 07:23 Alkaline Phosphatase 109 U/L (40-130) 07/22/23 07:23 C-Reactive Protein 208.3 mg/L (0.0-4.9) H 07/21/23 05:10 Total Protein 7.5 g/dL (6.6-8.7) 07/22/23 07:23 Albumin 3.7 g/dL (3.5-5.2) 07/22/23 07:23 Globulin 3.8 g/dL (1.3-4.6) 07/22/23 07:23 Triglycerides 54 mg/dL (0-150) 07/20/23 19: Cholesterol 140 mg/dL (0-200) 07/20/23 19:28 LDL Cholesterol, Calc 78 mg/dL (50-129) 07/20/23 19: HDL Cholesterol 51 mg/dL (60-100) L 07/20/23 19:28 LDL/HDL Ratio 1.53 RATIO (0.00-3.22) 07/20/23 19: Cholesterol/HDL Ratio 2.75 mg/dL (1.0-5.00) 07/20/23 19:28 Lipase 253 U/L (13-60) H 07/20/23 17:53 TSH 2.68 uIU/mL (0.27-4.20) 07/21/23 05:10 Urine Color [place] (Yellow) A 07/20/23 18:54 Urine Appearance Clear (CLEAR) 07/20/23 18:54 Urine pH 5 (5-7) 07/20/23 18:54 Ur Specific [place] 1.020 (1.005-1.030) 07/20/23 18:54 Urine Protein Neg (Negative) 07/20/23 18:54 Urine Glucose (UA) Norm (Normal) 07/20/23 18:54 Urine Ketones Negative (Negative) 07/20/23 18:54 Urine Blood 3+ (Negative) H 07/20/23 18:54 Urine Nitrate Negative (Negative) 07/20/23 18:54 Urine Bilirubin 1+ (Negative) H 07/20/23 18:54 Urine Urobilinogen 1 mg/dL (Negative) H 07/20/23 18:54 Ur Leukocyte Esterase Negative (Negative) 07/20/23 18:54 Urine RBC 0-4 /hpf (0-2) H 07/20/23 18:54 Urine WBC 0-4 /hpf (0-5) H 07/20/23 18:54 Ur Squamous Epith Cells None /hpf (0-5) 07/20/23 18:54 Amorphous Sediment Not Reportable 07/20/23 18:54 Urine Bacteria Trace /hpf (NONE) 07/20/23 18:54 Urine Mucus 1+ /hpf 07/20/23 18:54 Urine Opiates Screen Negative ng/mL (Negative) 07/20/23 18:54 Ur Barbiturates Screen Negative ng/mL (Negative) 07/20/23 18:54 Ur Phencyclidine Scrn Negative ng/mL (Negative) 07/20/23 18:54 Ur Amphetamines Screen Negative ng/mL (Negative) 07/20/23 18:54 U Benzodiazepines Scrn Negative ng/mL (Negative) 07/20/23 18:54 Urine Cocaine Screen Negative ng/mL (Negative) 07/20/23 18:54 U Marijuana (THC) Screen Negative ng/mL (Negative) 07/20/23 18:54 Ethyl Alcohol < 10 mg/dL (0-10) 07/20/23 17:53 Vitals Last Vital Signs Temp 98.4 F 07/22/23 07:18 Pulse 95 07/22/23 07:18 Resp 16 07/22/23 07:18 BP 149/92 07/22/23 07:18 Pulse Ox 98 07/22/23 07:18 O2 Del Method Room Air 07/22/23 07:18 Discharge Plan Discharge Patient Disposition: Home Condition: Stable Prescriptions: New hydrocodone-acetaminophen 5-325 mg tablet 1 tab PO Q6H PRN (Reason: pain) Qty: 14 0RF ondansetron 4 mg tablet,disintegrating 4 mg PO Q6H PRN (Reason: nausea and vomiting) Qty: 14 0RF Protonix 40 mg tablet,delayed release (DR/EC) 40 mg PO QAM 28 Days Qty: 28 0RF ondansetron HCl 4 mg tablet 4 mg PO DAILY PRN (Reason: nausea and vomiting) 4 Days Qty: 14 0RF ketorolac 10 mg tablet 10 mg PO Q8H PRN (Reason: pain) 3 Days Qty: 10 0RF Continued multivitamin Tablet 1 tab PO QAM Discharge Orders: Discharge Order (Routine); Ordered 07/22/23 Ordered By: Abilio Beckford Referrals: Ricardo Burns MD [Physician] - 07/27/23 11:00 am Discharge Diet: Advance as tolerated and Full LIquid Discharge Activity: Resume usual activity Patient Instructions: Hydrocodone/Acetaminophen (By mouth), Ketorolac (By mouth) (Toradol), Ondansetron (By mouth), Pantoprazole (By mouth), Pancreatitis (ED), Opioid Safety, Pancreatitis Activity Restrictions/Additional Instructions: Please take liquid diet for next 2 to 4 days and then advance to soft/brat diet including bananas, toast, applesauce for next 1 week and then advance to a regular diet within next 2 weeks. Discharge Attestations Time Spent in Discharge Care*: greater than 30 min Specific Discharge Activities: educating patient, educating and/or supporting family/caregiver, discussing with pcp/other providers, discussing with upper caser/social workers/dc planners, documenting/other paperwork and evaluating patient/reviewing data Status at Discharge: Cognitive status at discharge: cognitively intact , Behavioral status at discharge: cooperative , Functional status at discharge: independent ambulation , Overall status at discharge: patient is back to baseline Quality Metrics Clinical Quality Measures [ No reported AMI, CVA or VTE this stay] Coding Level of Care Code 50282 Total time (in minutes) for Discharge: 50 Diagnoses Pancreatitis K85.90 Acute pancreatitis complication: unspecified Chronicity: acute Pancreatitis type: unspecified pancreatitis type
[2023-07-22 11:26] VITALS: BP 125/84; PULSE 80; RESP 16; TEMP 36.9; O2SAT 97
[2023-07-22 12:44] LABS: CENTROMERE B ANTIBODY <1.0 NEG AI (<1.0 NEG); JO-1 ANTIBODY <1.0 NEG AI (<1.0 NEG); RNP ANTIBODY <1.0 NEG AI (<1.0 NEG); SCL-70 ANTIBODY <1.0 NEG AI (<1.0 NEG); SJOGREN'S ANTIBODY (SS-A) <1.0 NEG AI (<1.0 NEG); SM ANTIBODY <1.0 NEG AI (<1.0 NEG); SS-B <1.0 NEG AI (<1.0 NEG)
[2023-07-22 12:54] VITALS: BP 125/84; PULSE 80; RESP 16; TEMP 36.9; O2SAT 97
[2023-07-22 16:45] LABS: ANA SCREEN, IFA NEGATIVE (NEGATIVE)
[2023-07-23 13:39] LABS: COMPLEMENT, TOTAL (CH50) 59 U/mL (31-60)
[2023-07-23 14:34] LABS: COMPLEMENT COMPONENT C3C 167 mg/dL (82-185); COMPLEMENT COMPONENT C4C 42 mg/dL (15-53)
[2023-07-26 08:49] LABS: THYROID PEROXIDASE ANTIBODIES 1 IU/mL (<9)
== END 2023-07-22 12:55 | disposition home or self-care (01) | DRG 440 ==
LOC: ER 19:48 → MEDSURG 20:22
PROVIDERS: Student in an Organized Health Care Education/Training Program; Admitting Provider Student in an Organized Health Care Education/Training Program; Emergency Provider Emergency Medicine; PCP Family Medicine; Visit Provider Student in an Organized Health Care Education/Training Program
DX: K85.90 Acute pancreatitis without necrosis or infection, unspecified (principal)
CPT/HCPCS: 36415; 74177; 80053; 80061; 80306; 80307; 81001; 83605; 83690; 84443; 85025; 85651; 86140; 86160; 86162; 86235; 86255; 86376; 96361; 96374; 96375; 99285; C9113; J1885; J2405; J2543; J3480; J7030; Q9967

== ENCOUNTER 2023-12-27 01:11 | Emergency (ER) | payer SELFPAY ==
[2023-12-27 01:25] VITALS: BP 160/87; PULSE 85; RESP 17; TEMP 37.2; O2SAT 99; BMI 38.4
[2023-12-27 01:56] LABS: Glucose Urine UA Norm (Normal); Protein Urine 2+ (Negative); Urine Appearance Turbid (CLEAR); Urine Color Dark Yellow (Yellow); pH Urine 5 (5-7)
[2023-12-27 01:57] LABS: Add Urine Microscopic? YES; Amorphous Sediment Urine 1+ /hpf; Bacteria Urine 1+ /hpf; Bilirubin Urine 1+ (Negative); Blood Urine 3+ (Negative); Coarse Granular Casts Urine 0-4 /lpf; Ketones Urine Negative (Negative); Leukocyte Esterase Urine Trace (Negative); Mucus Urine TRACE /hpf; Nitrate Urine Negative (Negative); RBC Urine 80-100 /hpf (0-2); Squamous Epithelial Cell Urine 0-4 /hpf (0-5); Urobilinogen Urine 1 mg/dL (Negative); WBC Urine 15-25 /hpf (0-5)
[2023-12-27 01:58] LABS: Add Urine Culture? Yes
--- NOTE | 2023-12-27 02:27 | CTR_ITS ---
PROCEDURE INFORMATION: Exam: CT Abdomen And Pelvis Without Contrast Exam date and time: 12/27/2023 2:48 AM Age: 23 years old Clinical indication: Abdominal pain; Patient HX: Left flank pain with hematuria; Additional info: Flank pain, hematuria TECHNIQUE: Imaging protocol: Computed tomography of the abdomen and pelvis without contrast. Radiation optimization: All CT scans at this facility use at least one of these dose optimization techniques: automated exposure control; mA and/or kV adjustment per patient size (includes targeted exams where dose is matched to clinical indication); or iterative reconstruction. COMPARISON: CT abdomen pelvis w con* [id number] 07/20/2023 6:23 PM RADIATION DOSE METRICS: Total DLP (mGy-cm): 1160.01 FINDINGS: Lungs: Lung bases are clear as visualized. Liver: There is diffuse fatty infiltration of the liver. The liver is otherwise normal. Gallbladder and biliary ducts: Normal. No calcified stones. No ductal dilation. Pancreas: Normal. No ductal dilation. Spleen: Normal. No splenomegaly. Adrenal glands: Normal. No mass. Kidneys and ureters: There are bilateral nonobstructing renal calculi. There is mild hydronephrosis and hydroureter on the left secondary to a 2-3 mm stone within the distal left ureter. Stomach and bowel: Unremarkable. No obstruction. No mucosal thickening. Appendix: No evidence of appendicitis. Intraperitoneal space: Unremarkable. No free air. No significant fluid collection. Vasculature: Unremarkable. No abdominal aortic aneurysm. Lymph nodes: Unremarkable. No enlarged lymph nodes. Urinary bladder: Unremarkable as visualized. Reproductive: Unremarkable as visualized. Bones/joints: Unremarkable. No acute fracture. Soft tissues: Unremarkable. CT/CT kidney stone [id number] IMPRESSION: 1. Nephrolithiasis. 2. Mild hydronephrosis and hydroureter on the left secondary to a small distal left ureteral stone. 3. Fatty infiltration of the liver.
[2023-12-27] MEDS: ketorolac 30 mg/mL INJ IVP (03:21)
[2023-12-27] MEDS: ondansetron 2 mg/ML SDV 2 mL 4 MG IVP (03:21)
[2023-12-27 03:27] LABS: Basophils % 0.2 %; Eosinophils % 0.1 %; Hematocrit 45.6 % (37-53); Lymphocytes # 1.3 10^3/uL (0.8-4.8); Lymphocytes % 8.2 %; Mean Corpuscular HGB Conc 33.8 g/dL (30-55); Mean Corpuscular Hemoglobin 29.6 pg (27-33); Mean Corpuscular Volume 87.5 fl (82-101); Mean Platelet Volume 10.9 fL (7.4-10.4); Monocytes # 0.9 10^3/uL (0.2-0.9); Monocytes % 5.5 %; Neutrophils # 14.01 10^3/uL (1.8-7.7); Neutrophils % 85.7 %; Nucleated Red Blood Cells % 0 %; Platelet Count 318 10^3/cmm (157-399); Red Blood Count 5.21 10^6/uL (3.85-5.65); Red Cell Distribution Width 12.4 % (12.1-15.1); White Blood Count 16.33 10^3/uL (3.29-11.43)
[2023-12-27 03:43] LABS: Alanine Aminotransferase 31 U/L (0-41); Albumin Level 4.6 g/dL (3.5-5.2); Alkaline Phosphatase 93 U/L (40-130); Aspartate Amino Transferase 21 U/L (0-40); Blood Urea Nitrogen 10 mg/dL (6-20); Calcium 9.7 mg/dL (8.5-10.5); Carbon Dioxide 23 mmol/L (22-29); Chloride 102 mmol/L (98-107); Creatinine Clr Calc Pharmacy 151.4746; Glomerular Filtration Rate 93.4 mL/min (90-130); Glucose 102 mg/dL (65-115); Osmolality Calculated 287 mOsm/kg (285-295); Sodium 139 mmol/L (136-145); Total Bilirubin 0.6 mg/dL (0.15-1.2); Total Protein 7.6 g/dL (6.6-8.7)
[2023-12-27 04:01] VITALS: PULSE 80; RESP 16; O2SAT 99
[2023-12-27 04:03] VITALS: PULSE 80; RESP 16; O2SAT 99
--- NOTE | 2023-12-27 04:54 | ED_ITS ---
HPI - Abdominal Pain 2 General: Chief Complaint: Abdominal Pain Stated Complaint: Lower back pain Time Seen by Provider: 12/27/23 03:07 History of Present Illness: 23-year-old healthy male seen earlier fo r left-sided back pain at urgent care. He was prescribed muscle relaxers and ibuprofen, which have not been helping. His back pain worsened, began to radiate to his pelvis, and caused him to throw up earlier in the evening. He presents with the symptoms. His urine is also dark. No diarrhea. No fever. PFSH ED 2 PFSH: Medical History BMI 35.0-35.9,adult Mood disorder Anxiety Family History Mother Hypertension Social History Smoking and tobacco/nicotine status: unknown if used tobacco/nicotine Alcohol intake: never Substance/Drug Use: never Adopted: No Caregiver/support person: No service: No Current occupational exposures/hazards: No Current gender identity: Male Physical Exam 2 Const: COMMON NORMALS: no acute distress GENERAL APPEARANCE: cooperative; not ill appearing and not frail appearing HENMT: COMMON NORMALS: normocephalic, atraumatic and Normal external nose present HEAD & SCALP: normocephalic and atraumatic FACE & SINUS: normal facial exam and face symmetric NOSE: Normal external nose present Eye: COMMON NORMALS: Equal, round and reactive pupils present and EOMs intact bilaterally PUPIL: Yes Equal, round and reactive pupils present Neck/C-Spine: GENERAL: Yes trachea midline Chest: CHEST: Yes Symmetrical chest wall rise Resp: COMMON NORMALS: normal respiratory effort, No retractions, No use of accessory muscles and clear to auscultation bilaterally AUSCULTATION: clear to auscultation bilaterally Cardio: COMMON NORMALS: regular rate and regular rhythm RATE: regular rate RHYTHM: regular rhythm GI: COMMON NORMALS: Normal to inspection, nondistended, normoactive bowel sounds present : BLADDER/KIDNEY EXAM: Yes CVA tenderness on the left (Mild) Back/Pelvis: GENERAL BACK: Yes CVA tenderness Extremity: COMMON NORMALS: no pedal edema Neuro: HONEY COMA SCALE: document GCS findings [place] coma scale eye opening: Spontaneous [place] coma scale verbal response: Orientated [place] coma scale motor response: [place]bey commands [place] coma scale total score: 15 S ENSORY EXAM: Yes extremities (intact) Psych: COMMON NORMALS: speech normal SPEECH: Yes normal speech Skin: COMMON NORMALS: no rashes or lesions noted GENERAL SKIN EXAM: no rashes or lesions noted Course 2 Vital Signs: Vital signs: Vital Signs Temperature 98.9 F 12/27/23 01:25 Pulse Rate 80 12/27/23 04:03 Respiratory Rate 16 12/27/23 04:03 Blood Pressure 160/87 12/27/23 01:25 Pulse Oximetry 99 12/27/23 04:03 Oxygen Delivery Me thod Room Air 12/27/23 01:25 MDM - Abdominal Pain Medical Decision Making 23-year-old male with left-sided back and flank pain. He is afebrile. His white blood cell count is 16. Other laboratory markers are negative. He has a nitrate negative leukocyte Estrace negative urinalysis. CT shows a small distal left ureteral stone consistent with his symptoms. His pain is controlled here. He will be placed on Flomax, Percocet as needed for pain, and Zofran. Will ask case management to make him a urology follow-up appointment. He should be able to pass the stone on his own. He knows to return for worsening symptoms Lab Data 12/27/23 03:19 12/27/23 03:19 Labs/Radiology: Radiology Impressions Abdomen/Pelvis CT 12/27/23 02:27 IMPRESSION: 1. Nephrolithiasis. 2. Mild hydronephrosis and hydroureter on the left secondary to a small distal left ureteral stone. 3. Fatty infiltration of the liver. Laboratory Results WBC 16.33 10^3/uL (3.29-11.43) H 12/27/23 03:19 RBC 5.21 10^6/uL (3.85-5.65) 12/27/23 03:19 Hgb 15.40 g/dL (11.27-16.99) 12/27/23 03:19 Hct 45.6 % (37-53) 12/27/23 03:19 MCV 87.5 fl (82-101) 12/27/23 03:19 MCH 29.6 pg (27-33) 12/27/23 03:19 MCHC 33.8 g/dL (30-55) 12/27/23 03:19 RDW 12.4 % (12.1-15.1) 12/27/23 03:19 Plt Count 318 10^3/cmm (157-399) 12/27/23 03:19 MPV 10.9 fL (7.4-10.4) H 12/27/23 03:19 Neut % (Auto) 85.7 % 12/27/23 03:19 Lymph % (Auto) 8.2 % 12/27/23 03:19 [place] % (Auto) 5.5 % 12/27/23 03:19 Eos % (Auto) 0.1 % 12/27/23 03:19 Baso % (Auto) 0.2 % 12/27/23 03:19 Neut # (Auto) 14.01 10^3/uL (1.8-7.7) H 12/27/23 03:19 Lymph # (Auto) 1.3 10^3/uL (0.8-4.8) 12/27/23 03:19 [place] # (Auto) 0.9 10^3/uL (0.2-0.9) 12/27/23 03:19 Eos # (Auto) 0.0 10^3/uL (0.0-0.8) 12/27/23 03:19 Baso # (Auto) 0.0 10^3/uL (0.0-0.1) 12/27/23 03:19 Nucleated RBC % (auto) 0 % 12/27/23 03:19 Nucleated RBCs # 0.0 /100WBC 12/27/23 03:19 Sodium 139 mmol/L (136-145) 12/27/23 03:19 Potassium 4.0 mmol/L (3.5-5.1) 12/27/23 03:19 Chloride 102 mmol/L (98-107) 12/27/23 03:19 Carbon Dioxide 23 mmol/L (22-29) 12/27/23 03:19 Anion Gap 18.0 (5-19) 12/27/23 03:19 BUN 10 mg/dL (6-20) 12/27/23 03:19 Creatinine 1.0 mg/dL (0.7-1.2) 12/27/23 03:19 GFR Calculation 93.4 mL/min (90-130) 12/27/23 03:19 Glucose 102 mg/dL (65-115) 12/27/23 03:19 Calculated Osmolality 287 mOsm/kg (285-295) 12/27/23 03:19 Calcium 9.7 mg/dL (8.5-10.5) 12/27/23 03:19 Total Bilirubin 0.6 mg/dL (0.15-1.2) 12/27/23 03:19 AST 21 U/L (0-40) 12/27/23 03:19 ALT 31 U/L (0-41) 12/27/23 03:19 Alkaline Phosphatase 93 U/L (40-130) 12/27/23 03:19 C-Reactive Protein 4.0 mg/L (0.0-4.9) 12/27/23 03:19 Total Protein 7.6 g/dL (6.6-8.7) 12/27/23 03:19 Albumin 4.6 g/dL (3.5-5.2) 12/27/23 03:19 Globulin 3.0 g/dL (1.3-4.6) 12/27/23 03:19 Urine Color Dark yellow (Yellow) 12/27/23 01:35 Urine Appearance [place] (CLEAR) A 12/27/23 01:35 Urine pH 5 (5-7) 12/27/23 01:35 Ur Specific [place] 1.020 (1.005-1.030) 12/27/23 01:35 Urine Protein 2+ (Negative) H 12/27/23 01:35 Urine Glucose (UA) Norm (Normal) 12/27/23 01:35 Urine Ketones Negative (Negative) 12/27/23 01:35 Urine Blood 3+ (Negative) H 12/27/23 01:35 Urine Nitrate Negative (Negative) 12/27/23 01:35 Urine Bilirubin 1+ (Negative) H 12/27/23 01:35 Urine Urobilinogen 1 mg/dL (Negative) H 12/27/23 01:35 Ur Leukocyte Esterase Trace (Negative) H 12/27/23 01:35 Urine RBC 80-100 /hpf (0-2) H 12/27/23 01:35 Urine WBC 15-25 /hpf (0-5) H 12/27/23 01:35 Ur Squamous Epith Cells 0-4 /hpf (0-5) H 12/27/23 01:35 Amorphous Sediment 1+ /hpf 12/27/23 01:35 Urine Bacteria 1+ /hpf (NONE) H 12/27/23 01:35 Coarse Granular Casts 0-4 /lpf H 12/27/23 01:35 Urine Mucus Trace /hpf 12/27/23 01:35 All radiology interpretation(s) finalized by discharge Discharge Plan Discharge Patient Disposition: Home Clinical Impression: Ureterolithiasis Condition: Stable Prescriptions: New Percocet 7.5-325 mg tablet 1 tab PO Q6H PRN (Reason: pain) Qty: 10 0RF ondansetron 4 mg tablet,disintegrating 4 mg PO Q6H PRN (Reason: nausea and vomiting) Qty: 14 0RF Flomax 0.4 mg capsule 0.4 mg PO DAILY Qty: 10 0RF No Action prednisone 20 mg tablet 60 mg PO DAILY 5 Days Qty: 15 0RF methocarbamol 750 mg tablet 750 mg PO Q8H PRN (Reason: pain) Qty: 30 0RF ibuprofen 800 mg tablet 800 mg PO Q8H PRN (Reason: pain) Qty: 30 0RF multivitamin Tablet 1 tab PO QAM Discharge Orders: Discharge ED (Routine); Ordered 12/27/23 Ordered By: Sergio Davis Patient Instructions: Kidney Stones (ED), Opioid Safety, Pain Management Activity Restrictions/Additional Instructions: Strain your urine to ensure that you passed your stone. Drink plenty of liquids for the next 48 hours. Pain and nausea medication as needed. Take the tamsulosin to help pass the stone as it can dilate the ureter. Return for fever, vomiting liquids, worsening pain despite treatment, other concerning symptoms. Case management has been asked to make you a urology follow-up appointment. Coding Level of Care Code ED Coding File Clerk for Carlos Mckeon
== END 2023-12-27 04:05 | disposition home or self-care (01) ==
PROVIDERS: Emergency Provider Emergency Medicine
DX: N13.2 Hydronephrosis with renal and ureteral calculous obstruction (principal)
CPT/HCPCS: 74176; 80053; 81001; 85025; 86140; 87086; 96374; 96375; 99285; J1885; J2270; J2405

== ENCOUNTER 2024-10-15 00:31 | Emergency (ER) | payer OTHER, SELFPAY ==
[2024-10-15 00:42] VITALS: BP 126/73; PULSE 71; RESP 18; TEMP 36.6; O2SAT 95; BMI 39.0
--- NOTE | 2024-10-15 01:09 | CTR_ITS ---
PROCEDURE INFORMATION: Exam: CT Abdomen And Pelvis Without Contrast Exam date and time: 10/15/2024 1:51 AM Age: 24 years old Clinical indication: Abdominal pain; Localized; Right; C/O RT sided abd pain with n/v; Additional info: Rlq pain TECHNIQUE: Imaging protocol: Computed tomography of the abdomen and pelvis without contrast. Radiation optimization: All CT scans at this facility use at least one of these dose optimization techniques: automated exposure control; mA and/or kV adjustment per patient size (includes targeted exams where dose is matched to clinical indication); or iterative reconstruction. COMPARISON: CT kidney stone [id number] 12/27/2023 2:48 AM RADIATION DOSE METRICS: Total DLP (mGy-cm): 1180.75 FINDINGS: Lungs: Lower lung seaman clear. Liver: Normal. No mass. Gallbladder and biliary ducts: Normal. No calcified stones. No ductal dilation. Pancreas: Normal. No ductal dilation. Spleen: Normal. No splenomegaly. Adrenal glands: Normal. No mass. Kidneys and ureters: Punctate nonobstructing stone within the upper pole collecting system of the right kidney. Negative for hydronephrosis or obstructive urolithiasis. Stomach and bowel: Unremarkable. No obstruction. No mucosal thickening. Appendix: No evidence of appendicitis. Intraperitoneal space: Unremarkable. No free air. No significant fluid collection. Vasculature: Unremarkable. No abdominal aortic aneurysm. Lymph nodes: Unremarkable. No enlarged lymph nodes. Urinary bladder: Unremarkable as visualized. Reproductive: Unremarkable as visualized. Bones/joints: Unremarkable. No acute fracture. Soft tissues: Unremarkable. CT/CT abdomen pelvis wo con [id number] IMPRESSION: 1. Negative for appendicitis. No hydronephrosis or obstructing urolithiasis. No identified acute pathology within the abdomen or pelvis. 2. Punctate right nonobstructing nephrolithiasis.
[2024-10-15 01:39] LABS: Basophils # 0.1 10^3/uL (0.0-0.1); Basophils % 0.3 %; Eosinophils # 0.1 10^3/uL (0.0-0.8); Eosinophils % 0.6 %; Hematocrit 48.8 % (37-53); Lymphocytes # 1.8 10^3/uL (0.8-4.8); Lymphocytes % 12.2 %; Mean Corpuscular HGB Conc 33.2 g/dL (30-55); Mean Corpuscular Hemoglobin 29.7 pg (27-33); Mean Corpuscular Volume 89.5 fl (82-101); Mean Platelet Volume 10.9 fL (7.4-10.4); Monocytes # 0.8 10^3/uL (0.2-0.9); Monocytes % 5.4 %; Neutrophils # 11.68 10^3/uL (1.8-7.7); Neutrophils % 81.2 %; Nucleated Red Blood Cells % 0 %; Platelet Count 294 10^3/cmm (157-399); Red Blood Count 5.45 10^6/uL (3.85-5.65); Red Cell Distribution Width 12.7 % (12.1-15.1)
[2024-10-15] MEDS: ondansetron 2 mg/ML SDV 2 mL 4 MG IVP (01:49)
[2024-10-15] MEDS: morphine 4 mg/mL SDV 1 mL IVP (01:49)
[2024-10-15 01:58] LABS: Alanine Aminotransferase 37 U/L (0-41); Albumin Level 4.2 g/dL (3.5-5.2); Alkaline Phosphatase 96 U/L (40-130); Anion Gap 16.8 (5-19); Aspartate Amino Transferase 22 U/L (0-40); Blood Urea Nitrogen 10 mg/dL (6-20); Calcium 9.3 mg/dL (8.5-10.5); Carbon Dioxide 24 mmol/L (22-29); Chloride 103 mmol/L (98-107); Creatinine Clr Calc Pharmacy 173.3016; Globulin 3.6 g/dL (1.3-4.6); Glomerular Filtration Rate 104.6 mL/min (90-130); Glucose 138 mg/dL (65-115); Lipase 16 U/L (13-60); Osmolality Calculated 291 mOsm/kg (285-295); Potassium 3.8 mmol/L (3.5-5.1); Sodium 140 mmol/L (136-145); Total Bilirubin 0.5 mg/dL (0.15-1.2); Total Protein 7.8 g/dL (6.6-8.7)
--- NOTE | 2024-10-15 02:06 | W.ED.ABDPA2 ---
HPI - Abdominal Pain General: Chief Complaint: Abdominal Pain Stated Complaint: L side upper ABD Pain Time Seen by Provider: 10/15/24 01:34 History of Present Illness: 24-year-old male patient with what he says is right sided lower abdominal pain starting last evening. He is nauseated. He has not vomited. No fever. No history of abdominal surgery. No blood in the stool. No diarrhea. Related Data Home Medications ?Medication ?Instructions ?Recorded ?Confirmed multivitamin 1 tab PO QAM 07/21/23 12/26/23 Previous Rx's ?Medication ?Instructions ?Recorded ibuprofen 800 mg tablet 800 mg PO Q8H PRN pain #30 tabs 12/26/23 methocarbamol 750 mg tablet 750 mg PO Q8H PRN pain #30 tabs 12/26/23 prednisone 20 mg tablet 60 mg (3 x 20 mg) PO DAILY 5 days 12/26/23 #15 tabs ondansetron 4 mg disintegrating 4 mg PO Q6H PRN nausea and 12/27/23 tablet vomiting #14 tabs oxycodone-acetaminophen 7.5 mg-325 1 tab PO Q6H PRN pain #10 tabs 12/27/23 mg tablet (Percocet) tamsulosin 0.4 mg capsule (Flomax) 0.4 mg PO DAILY #10 caps 12/27/23 hydrocodone 5 mg-acetaminophen 325 1 tab PO Q8H PRN pain #5 tabs 10/15/24 mg tablet ketorolac 10 mg tablet 10 mg PO TID PRN pain #10 tabs 10/15/24 ondansetron 4 mg disintegrating 4 mg PO Q6H PRN nausea and 10/15/24 tablet vomiting #14 tabs Allergies Allergy/AdvReac Type Severity Reaction Status Date / Time clarithromycin (From Biaxin) Allergy RASH Verified 12/27/23 01:29 [facility]: Medical History BMI 35.0-35.9,adult Mood disorder Anxiety Family History Mother Hypertension Social History Smoking and tobacco/nicotine status: unknown if used tobacco/nicotine Alcohol intake: never Substance/Drug Use: never Adopted: No Caregiver/support person: No service: No Current occupational exposures/hazards: No Current gender identity: Male Physical Exam Const: COMMON NORMALS: no acute distress GENERAL APPEARANCE: cooperative; not ill appearing and not frail appearing HENMT: COMMON NORMALS: normocephalic, atraumatic and Normal external nose present HEAD & SCALP: normocephalic and atraumatic FACE & SINUS: normal facial exam and face symmetric NOSE: Normal external nose present Eye: COMMON NORMALS: Equal, round and reactive pupils present and EOMs intact bilaterally PUPIL: Yes Equal, round and reactive pupils present Neck/C-Spine: GENERAL: Yes trachea midline Chest: CHEST: Yes Symmetrical chest wall rise Resp: COMMON NORMALS: normal respiratory effort, No retractions, No use of accessory muscles and clear to auscultation bilaterally AUSCULTATION: clear to auscultation bilaterally Cardio: COMMON NORMALS: regular rate and regular rhythm RATE: regular rate RHYTHM: regular rhythm GI: COMMON NORMALS: Normal to inspection, nondistended, normoactive bowel sounds present PALPATION: Yes Tenderness to palpation present (GI) Details: RLQ Extremity: COMMON NORMALS: no pedal edema Neuro: DARRYL COMA SCALE: document GCS findings [place] coma scale eye opening: Spontaneous [place] coma scale verbal response: Orientated Darryl coma scale motor response: Obey commands [place] coma scale total score: 15 SENSORY EXAM: Yes extremities (intact) Psych: COMMON NORMALS: speech normal SPEECH: Yes normal speech Skin: COMMON NORMALS: no rashes or lesions noted GENERAL SKIN EXAM: no rashes or lesions noted Course Vital Signs: Vital signs: Vital Signs Temperature 97.9 F 10/15/24 00:42 Pulse Rate 77 10/15/24 04:37 Respiratory Rate 16 10/15/24 04:37 Blood Pressure 173/83 10/15/24 04:37 Pulse Oximetry 98 10/15/24 04:37 Oxygen Delivery Me thod Room Air 10/15/24 00:42 MDM - Abdominal Pain Medical Decision Making White blood cell count is 14. Other laboratory is not remarkable. CRP is only 3. Lipase is 16. CT is pending CT negative for acute problem. Will be allowed discharge. Clear liquids for 24 hours. Lab Data 10/15/24 01:32 10/15/24 01:32 Labs/Radiology: Radiology Impressions Abdomen/Pelvis CT 10/15/24 01:09 IMPRESSION: 1. Negative for appendicitis. No hydronephrosis or obstructing urolithiasis. No identified acute pathology within the abdomen or pelvis. 2. Punctate right nonobstructing nephrolithiasis. Laboratory Results WBC 14.40 10^3/uL (3.29-11.43) H 10/15/24 01:32 RBC 5.45 10^6/uL (3.85-5.65) 10/15/24 01:32 Hgb 16.20 g/dL (11.27-16.99) 10/15/24 01:32 Hct 48.8 % (37-53) 10/15/24 01:32 MCV 89.5 fl (82-101) 10/15/24 01:32 MCH 29.7 pg (27-33) 10/15/24 01:32 MCHC 33.2 g/dL (30-55) 10/15/24 01:32 RDW 12.7 % (12.1-15.1) 10/15/24 01:32 Plt Count 294 10^3/cmm (157-399) 10/15/24 01:32 MPV 10.9 fL (7.4-10.4) H 10/15/24 01:32 Neut % (Auto) 81.2 % 10/15/24 01:32 Lymph % (Auto) 12.2 % 10/15/24 01:32 [place] % (Auto) 5.4 % 10/15/24 01:32 Eos % (Auto) 0.6 % 10/15/24 01:32 Baso % (Auto) 0.3 % 10/15/24 01:32 Neut # (Auto) 11.68 10^3/uL (1.8-7.7) H 10/15/24 01:32 Lymph # (Auto) 1.8 10^3/uL (0.8-4.8) 10/15/24 01:32 [place] # (Auto) 0.8 10^3/uL (0.2-0.9) 10/15/24 01:32 Eos # (Auto) 0.1 10^3/uL (0.0-0.8) 10/15/24 01:32 Baso # (Auto) 0.1 10^3/uL (0.0-0.1) 10/15/24 01:32 Nucleated RBC % (auto) 0 % 10/15/24 01:32 Nucleated RBCs # 0.0 /100WBC 10/15/24 01:32 Sodium 140 mmol/L (136-145) 10/15/24 01:32 Potassium 3.8 mmol/L (3.5-5.1) 10/15/24 01:32 Chloride 103 mmol/L (98-107) 10/15/24 01:32 Carbon Dioxide 24 mmol/L (22-29) 10/15/24 01:32 Anion Gap 16.8 (5-19) 10/15/24 01:32 BUN 10 mg/dL (6-20) 10/15/24 01:32 Creatinine 0.9 mg/dL (0.7-1.2) 10/15/24 01:32 GFR Calculation 104.6 mL/min (90-130) 10/15/24 01:32 Glucose 138 mg/dL (65-115) H 10/15/24 01:32 Calculated Osmolality 291 mOsm/kg (285-295) 10/15/24 01:32 Calcium 9.3 mg/dL (8.5-10.5) 10/15/24 01:32 Total Bilirubin 0.5 mg/dL (0.15-1.2) 10/15/24 01:32 AST 22 U/L (0-40) 10/15/24 01:32 ALT 37 U/L (0-41) 10/15/24 01:32 Alkaline Phosphatase 96 U/L (40-130) 10/15/24 01:32 C-Reactive Protein 3.0 mg/L (0.0-4.9) 10/15/24 01:32 Total Protein 7.8 g/dL (6.6-8.7) 10/15/24 01:32 Albumin 4.2 g/dL (3.5-5.2) 10/15/24 01:32 Globulin 3.6 g/dL (1.3-4.6) 10/15/24 01:32 Lipase 16 U/L (13-60) 10/15/24 01:32 Urine Color Yellow (Yellow) 10/15/24 02:25 Urine Appearance Clear (CLEAR) 10/15/24 02:25 Urine pH 5.5 (5-7) 10/15/24 02:25 Ur Specific [place] 1.023 (1.005-1.030) 10/15/24 02:25 Urine Protein Negative (Negative) 10/15/24 02:25 Urine Glucose (UA) Negative (Normal) 10/15/24 02:25 Urine Ketones Trace (Negative) 10/15/24 02:25 Urine Blood Trace (Negative) A 10/15/24 02:25 Urine Nitrate Negative (Negative) 10/15/24 02:25 Urine Bilirubin Negative (Negative) 10/15/24 02:25 Urine Urobilinogen 1.0 mg/dL (Negative) 10/15/24 02:25 Ur Leukocyte Esterase Negative (Negative) 10/15/24 02:25 Urine RBC 3-5 /hpf (0-2) 10/15/24 02:25 Urine WBC 0-5 /hpf (0-5) 10/15/24 02:25 Ur Squamous Epith Cells 0-5 /hpf (0-5) 10/15/24 02:25 Amorphous Sediment Not Reportable 10/15/24 02:25 Urine Bacteria None seen /hpf (NONE) 10/15/24 02:25 Hyaline Casts 2.46 /lpf 10/15/24 02:25 All radiology interpretation(s) finalized by discharge Discharge Plan Discharge Patient Disposition: Home Clinical Impression: Abdominal pain Condition: Stable Prescriptions: New hydrocodone-acetaminophen 5-325 mg tablet 1 tab PO Q8H PRN (Reason: pain) Qty: 5 0RF ketorolac 10 mg tablet 10 mg PO TID PRN (Reason: pain) Qty: 10 0RF ondansetron 4 mg tablet,disintegrating 4 mg PO Q6H PRN (Reason: nausea and vomiting) Qty: 14 0RF No Action prednisone 20 mg tablet 60 mg PO DAILY 5 Days Qty: 15 0RF methocarbamol 750 mg tablet 750 mg PO Q8H PRN (Reason: pain) Qty: 30 0RF ibuprofen 800 mg tablet 800 mg PO Q8H PRN (Reason: pain) Qty: 30 0RF multivitamin Tablet 1 tab PO QAM Percocet 7.5-325 mg tablet 1 tab PO Q6H PRN (Reason: pain) Qty: 10 0RF ondansetron 4 mg tablet,disintegrating 4 mg PO Q6H PRN (Reason: nausea and vomiting) Qty: 14 0RF Flomax 0.4 mg capsule 0.4 mg PO DAILY Qty: 10 0RF Discharge Orders: Discharge ED (Routine); Ordered 10/15/24 Ordered By: eSrgio Davis Patient Instructions: Abdominal Pain (ED), Opioid Safety, Pain Management Activity Restrictions/Additional Instructions: No specific cause of your abdominal pain was found by laboratory or imaging. Follow a clear liquid diet for at least 24 hours. Use medication for pain and nausea. Return for fever greater than 100, vomiting liquids, other concerns. Call your doctor for follow-up appointment. Print Language: Yakut Coding Level of Care Code ED Landscaping Manager for Carlos Mckeon
[2024-10-15 03:00] LABS: Bilirubin Urine Negative (Negative); Blood Urine Trace (Negative); Glucose Urine UA Negative (Normal); Ketones Urine Trace (Negative); Leukocyte Esterase Urine Negative (Negative); Nitrate Urine Negative (Negative); Protein Urine Negative (Negative); Specific Gravity, Urine 1.023 (1.005-1.030); Urine Appearance Clear (CLEAR); Urine Color Yellow (Yellow); pH Urine 5.5 (5-7)
[2024-10-15 03:05] LABS: Add Urine Microscopic? YES; Bacteria Urine None Seen /hpf; Hyaline Casts Urine 2.46 /lpf; Squamous Epithelial Cell Urine 0-5 /hpf (0-5); WBC Urine 0-5 /hpf (0-5)
[2024-10-15] MEDS: ketorolac 30 mg/mL INJ 15 MG IVP (03:15)
[2024-10-15] MEDS: HYDROmorphone 0.5 MG/0.5 ML INJ IVP (03:25)
--- NOTE | 2024-10-15 03:33 | PC.NURSE ---
Pt. has pushed call light several times to ask for something to make him go to sleep. I have informed him that the goal of the medication is not to put him to sleep, it is to reduce his pain. Pt. then asks if he can have something to eat and drink. I have stated not at this time until CT scan results are back and the physician has okayed it.
[2024-10-15 04:37] VITALS: BP 173/83; PULSE 77; RESP 16; O2SAT 98
== END 2024-10-15 04:38 | disposition home or self-care (01) ==
PROVIDERS: Emergency Provider Emergency Medicine
DX: R10.9 Unspecified abdominal pain (principal)
CPT/HCPCS: 74176; 80053; 81001; 83690; 85025; 86140; 96374; 96375; 99285; J1171; J1885; J2270; J2405

== ENCOUNTER 2024-10-19 04:07 | Inpatient (IN) | payer OTHER, SELFPAY ==
[2024-10-19] VITALS (30 sets, daily range): BP systolic 128–152; BP diastolic 69–112; PULSE 80–109; RESP 16–22; TEMP 36.3–37.4; O2SAT 91–98; BMI 39.0
--- NOTE | 2024-10-19 05:08 | ECG_ITS ---
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 Measurements Intervals [place] Rate: 99 P: 42 AK: 154 QRS: 110 QRSD: 98 T: 22 QT: 329 QTc: 424 Interpretive Statements SINUS RHYTHM LEFT POSTERIOR FASCICULAR BLOCK [QRS AXIS > 109, INFERIOR Q] No previous ECG available for comparison Electronically Signed On 10-19-2024 18:04:50 CDT by Stephanie Panchal M.D. [email or web address]
--- NOTE | 2024-10-19 05:18 | W.ED.ABDPA2 ---
HPI - Abdominal Pain General: Chief Complaint: Abdominal Pain Stated Complaint: right side abd pain nausea Time Seen by Provider: 10/19/24 05:08 History of Present Illness: 24-year-old female presents to the emergency room with complaint of abdominal pain. Was seen 4 days ago with similar complaints at that time CT was negative mild leukocytosis white count 14,000. Lipase UA were negative. Patient states she has continued vague right upper quadrant abdominal pain. No previous surgeries. He vomited once several days ago when he was initially seen in the emergency room but no hematemesis or coffee-ground emesis he has not had any diarrhea no hematochezia or melena. Patient does not drink alcohol does not use marijuana products. No recent abdominal trauma. Associated Symptoms: Denies chills, dysuria and fever(s) Related Data Previous Rx's ?Medication ?Instructions ?Recorded hydrocodone 5 mg-acetaminophen 325 1 tab PO Q8H PRN pain #5 tabs 10/15/24 mg tablet ketorolac 10 mg tablet 10 mg PO TID PRN pain #10 tabs 10/15/24 ondansetron 4 mg disintegrating 4 mg PO Q6H PRN nausea and 10/15/24 tablet vomiting #14 tabs Allergies Allergy/AdvReac Type Severity Reaction Status Date / Time clarithromycin (From Biaxin) Allergy RASH Verified 12/27/23 01:29 Review of Systems Const: Denies: fever(s) or chills Card: Denies: chest pain Resp: Denies: dyspnea GI: Reports: abdominal pain : Denies: dysuria, urinary frequency or urinary urgency Musc: Denies: neck pain or back pain Skin/Breast: Denies: rash [facility] ED PFSH: Medical History BMI 35.0-35.9,adult Mood disorder Anxiety Family History Mother Hypertension Social History Smoking and tobacco/nicotine status: unknown if used tobacco/nicotine Alcohol intake: never Substance/Drug Use: never Adopted: No Caregiver/support person: No service: No Current occupational exposures/hazards: No Current gender identity: Male Physical Exam Const: GENERAL APPEARANCE: cooperative ORIENTATION/CONSCIOUSNESS: Yes awake, Yes oriented to person, Yes oriented to place and Yes oriented to time HENMT: COMMON NORMALS: normocephalic, atraumatic and hearing grossly normal bilaterally HEAD & SCALP: normocephalic and atraumatic Resp: COMMON NORMALS: normal respiratory effort, No retractions, No use of accessory muscles and clear to auscultation bilaterally AUSCULTATION: clear to auscultation bilaterally Cardio: COMMON NORMALS: regular rate, regular rhythm and No murmurs present (Cardio) RATE: regular rate RHYTHM: regular rhythm GI: COMMON NORMALS: Soft to palpation and No hepatosplenomegaly present AUSCULTATION: Yes normoactive bowel sounds PALPATION: Yes Soft to palpation, No Tenderness to palpation present (GI), No Guarding due to palpation present (GI) and Yes No hepatosplenomegaly present Extremity: COMMON NORMALS: normal to inspection, capillary refill normal, no clubbing, cyanosis or edema, no calf tenderness and no pedal edema Neuro: SENSORIUM/ORIENTATION: Yes oriented to person, Yes oriented to place and Yes oriented to time Skin: COMMON NORMALS: no rashes or lesions noted GENERAL SKIN EXAM: no rashes or lesions noted Course Vital Signs: Vital signs: Vital Signs Temperature 99.4 F 10/19/24 04:14 Pulse Rate 87 10/19/24 12:20 Respiratory Rate 18 10/19/24 12:20 Blood Pressure 147/93 10/19/24 12:20 Pulse Oximetry 98 10/19/24 12:20 Oxygen Delivery Me thod Room Air 10/19/24 11:02 MDM - Abdominal Pain Medical Decision Making Repeat imaging now shows acute cholecystitis there is cholelithiasis but very minimal dilation of the common bile duct. The T. bili is slightly elevated but the transaminases are normal. Patient given IV fluids started on Zosyn. Discussed with general surgery they will admit for acute cholecystitis reviewed with the patient Medical Records I reviewed the patient's medical records. Lab Data I reviewed the patient's lab results. 10/19/24 05:41 10/19/24 05:41 Labs/Radiology: Radiology Impressions Abdomen/Pelvis CT 10/19/24 06:19 IMPRESSION: Likely acute cholecystitis. Gallbladder Ultrasound 10/19/24 07:13 IMPRESSION: 1. Normally distended gallbladder with mild diffuse wall thickening and a few stones. Suspect early changes of acute cholecystitis. This does correlate with the recent CT findings on 10/19/2024. 2. Common bile duct is very slightly enlarged. No intrahepatic duct dilatation. Consider MRCP. Laboratory Results WBC 19.30 10^3/uL (3.29-11.43) H 10/19/24 05:41 RBC 5.14 10^6/uL (3.85-5.65) 10/19/24 05:41 Hgb 15.20 g/dL (11.27-16.99) 10/19/24 05:41 Hct 45.2 % (37-53) 10/19/24 05:41 MCV 87.9 fl (82-101) 10/19/24 05:41 MCH 29.6 pg (27-33) 10/19/24 05:41 MCHC 33.6 g/dL (30-55) 10/19/24 05:41 RDW 12.2 % (12.1-15.1) 10/19/24 05:41 Plt Count 351 10^3/cmm (157-399) 10/19/24 05:41 MPV 10.6 fL (7.4-10.4) H 10/19/24 05:41 Neut % (Auto) 81.0 % 10/19/24 05:41 Lymph % (Auto) 7.8 % 10/19/24 05:41 [place] % (Auto) 10.1 % 10/19/24 05:41 Eos % (Auto) 0.4 % 10/19/24 05:41 Baso % (Auto) 0.3 % 10/19/24 05:41 Neut # (Auto) 15.65 10^3/uL (1.8-7.7) H 10/19/24 05:41 Lymph # (Auto) 1.5 10^3/uL (0.8-4.8) 10/19/24 05:41 [place] # (Auto) 2.0 10^3/uL (0.2-0.9) H 10/19/24 05:41 Eos # (Auto) 0.1 10^3/uL (0.0-0.8) 10/19/24 05:41 Baso # (Auto) 0.1 10^3/uL (0.0-0.1) 10/19/24 05:41 Nucleated RBC % (auto) 0 % 10/19/24 05:41 Nucleated RBCs # 0.0 /100WBC 10/19/24 05:41 Sodium 137 mmol/L (136-145) 10/19/24 05:41 Potassium 3.6 mmol/L (3.5-5.1) 10/19/24 05:41 Chloride 99 mmol/L (98-107) 10/19/24 05:41 Carbon Dioxide 25 mmol/L (22-29) 10/19/24 05:41 Anion Gap 16.6 (5-19) 10/19/24 05:41 BUN 8 mg/dL (6-20) 10/19/24 05:41 Creatinine 0.9 mg/dL (0.7-1.2) 10/19/24 05:41 GFR Calculation 104.6 mL/min (90-130) 10/19/24 05:41 Glucose 107 mg/dL (65-115) 10/19/24 05:41 Calculated Osmolality 283 mOsm/kg (285-295) L 10/19/24 05:41 Lactic Acid 1.0 mmol/L (0.5-2.2) 10/19/24 05:41 Calcium 9.2 mg/dL (8.5-10.5) 10/19/24 05:41 Total Bilirubin 1.5 mg/dL (0.15-1.2) H 10/19/24 05:41 AST 33 U/L (0-40) 10/19/24 05:41 ALT 29 U/L (0-41) 10/19/24 05:41 Alkaline Phosphatase 123 U/L (40-130) 10/19/24 05:41 Total Protein 8.1 g/dL (6.6-8.7) 10/19/24 05:41 Albumin 4.0 g/dL (3.5-5.2) 10/19/24 05:41 Globulin 4.1 g/dL (1.3-4.6) 10/19/24 05:41 Urine Color [place] (Yellow) A 10/19/24 05:40 Urine Appearance Clear (CLEAR) 10/19/24 05:40 Urine pH 5.5 (5-7) 10/19/24 05:40 Ur Specific [place] 1.016 (1.005-1.030) 10/19/24 05:40 Urine Protein Trace (Negative) A 10/19/24 05:40 Urine Glucose (UA) Negative (Normal) 10/19/24 05:40 Urine Ketones 1+ (Negative) H 10/19/24 05:40 Urine Blood 2+ (Negative) A 10/19/24 05:40 Urine Nitrate Negative (Negative) 10/19/24 05:40 Urine Bilirubin 1+ (Negative) H 10/19/24 05:40 Urine Urobilinogen 2.0 mg/dL (Negative) H 10/19/24 05:40 Ur Leukocyte Esterase Trace (Negative) A 10/19/24 05:40 Urine RBC 6-10 /hpf (0-2) 10/19/24 05:40 Urine WBC 0-5 /hpf (0-5) 10/19/24 05:40 Ur Squamous Epith Cells 0-5 /hpf (0-5) 10/19/24 05:40 Amorphous Sediment Not Reportable 10/19/24 05:40 Urine Bacteria None seen /hpf (NONE) 10/19/24 05:40 Hyaline Casts 1.21 /lpf 10/19/24 05:40 All radiology interpretation(s) finalized by discharge Discharge Plan Discharge Patient Disposition: Admitted As Inpatient Admit Provider: Ilir Roach Clinical Impression: Acute calculous cholecystitis Condition: Stable Coding Level of Care Code ED Student Ministries Director for [facility]
[2024-10-19 05:48] LABS: Basophils # 0.1 10^3/uL (0.0-0.1); Basophils % 0.3 %; Eosinophils # 0.1 10^3/uL (0.0-0.8); Eosinophils % 0.4 %; Hematocrit 45.2 % (37-53); Lymphocytes # 1.5 10^3/uL (0.8-4.8); Lymphocytes % 7.8 %; Mean Corpuscular HGB Conc 33.6 g/dL (30-55); Mean Corpuscular Hemoglobin 29.6 pg (27-33); Mean Corpuscular Volume 87.9 fl (82-101); Mean Platelet Volume 10.6 fL (7.4-10.4); Monocytes % 10.1 %; Neutrophils # 15.65 10^3/uL (1.8-7.7); Nucleated Red Blood Cells % 0 %; Platelet Count 351 10^3/cmm (157-399); Red Blood Count 5.14 10^6/uL (3.85-5.65); Red Cell Distribution Width 12.2 % (12.1-15.1)
[2024-10-19 05:50] LABS: Bilirubin Urine 1+ (Negative); Blood Urine 2+ (Negative); Glucose Urine UA Negative (Normal); Ketones Urine 1+ (Negative); Leukocyte Esterase Urine Trace (Negative); Nitrate Urine Negative (Negative); Protein Urine Trace (Negative); Specific Gravity, Urine 1.016 (1.005-1.030); Urine Appearance Clear (CLEAR); pH Urine 5.5 (5-7)
[2024-10-19 05:55] LABS: Add Urine Microscopic? YES; Bacteria Urine None Seen /hpf; Hyaline Casts Urine 1.21 /lpf; Squamous Epithelial Cell Urine 0-5 /hpf (0-5); WBC Urine 0-5 /hpf (0-5)
[2024-10-19 05:56] LABS: Urine Color Orange (Yellow)
[2024-10-19 06:04] LABS: Alanine Aminotransferase 29 U/L (0-41); Alkaline Phosphatase 123 U/L (40-130); Anion Gap 16.6 (5-19); Aspartate Amino Transferase 33 U/L (0-40); Blood Urea Nitrogen 8 mg/dL (6-20); Calcium 9.2 mg/dL (8.5-10.5); Carbon Dioxide 25 mmol/L (22-29); Chloride 99 mmol/L (98-107); Creatinine Clr Calc Pharmacy 173.3016; Globulin 4.1 g/dL (1.3-4.6); Glomerular Filtration Rate 104.6 mL/min (90-130); Glucose 107 mg/dL (65-115); Osmolality Calculated 283 mOsm/kg (285-295); Potassium 3.6 mmol/L (3.5-5.1); Sodium 137 mmol/L (136-145); Total Bilirubin 1.5 mg/dL (0.15-1.2); Total Protein 8.1 g/dL (6.6-8.7)
[2024-10-19] MEDS: ondansetron 2 mg/ML SDV 2 mL 4 MG IVP (06:08)
[2024-10-19] MEDS: morphine 4 mg/mL SDV 1 mL IVP ×2 (06:08→12:17)
[2024-10-19] MEDS: sodium chloride 0.9% 1,000 ML 999 ML IV (06:11)
--- NOTE | 2024-10-19 06:19 | CTR_ITS ---
PROCEDURE INFORMATION: Exam: CT Abdomen And Pelvis Without Contrast Exam date and time: 10/19/2024 6:42 AM Age: 24 years old Clinical indication: Abdominal pain; Epigastric; Additional info: Flank pain TECHNIQUE: Imaging protocol: Computed tomography of the abdomen and pelvis without contrast. Radiation optimization: All CT scans at this facility use at least one of these dose optimization techniques: automated exposure control; mA and/or kV adjustment per patient size (includes targeted exams where dose is matched to clinical indication); or iterative reconstruction. COMPARISON: CT abdomen pelvis wo con [id number] 10/15/2024 1:51 AM RADIATION DOSE METRICS: Total DLP (mGy-cm): 1142.5 FINDINGS: Liver: Normal. No mass. Gallbladder and biliary ducts: Pericholecystic stranding strongly implies acute cholecystitis. No stones are seen. The wall may be mildly thickened. Ultrasound recommended. Pancreas: Normal. No ductal dilation. Spleen: Normal. No splenomegaly. Adrenal glands: Normal. No mass. Kidneys and ureters: Nonobstructing calculus upper pole right kidney. Stomach and bowel: Unremarkable. No obstruction. No mucosal thickening. Appendix: No evidence of appendicitis. Intraperitoneal space: Unremarkable. No free air. No significant fluid collection. Vasculature: Unremarkable. No abdominal aortic aneurysm. Lymph nodes: Unremarkable. No enlarged lymph nodes. Urinary bladder: Unremarkable as visualized. Reproductive: Unremarkable as visualized. Bones/joints: Unremarkable. No acute fracture. Soft tissues: Unremarkable. Other findings: No distal or obstructing calculus is observed. CT/CT kidney stone [id number] IMPRESSION: Likely acute cholecystitis.
--- NOTE | 2024-10-19 07:13 | US_ITS ---
WS: [id number] RIGHT UPPER QUADRANT ULTRASOUND HISTORY: acute cholecystitis COMPARISON: CT 10/19 and 10/15/2024 Liver: 18.4 cm in length. Liver is just slightly enlarged. No intrahepatic duct dilatation. Portal Vein: Normal hepatopetal flow with monophasic waveform. Gallbladder: Gallbladder is distended. There are a few small stones within the gallbladder. Gallbladder wall is diffusely but only minimally thickened. No pericholecystic fluid. CBD: 0.8 cm Pancreas: Not visualized. Right kidney: 10.3 cm in length. Normal size and echogenicity. No hydronephrosis or mass. Aorta and IVC: Unremarkable abdominal aorta and IVC. No ascites. US/US gall bladder [id number] IMPRESSION: 1. Normally distended gallbladder with mild diffuse wall thickening and a few stones. Suspect early changes of acute cholecystitis. This does correlate with the recent CT findings on 10/19/2024. 2. Common bile duct is very slightly enlarged. No intrahepatic duct dilatation . Consider MRCP.
[2024-10-19] MEDS: piperacillin-tazobactam 3.375 GM in sodium chloride 0.9% (plus) 50 ML IV (07:33)
--- NOTE | 2024-10-19 09:07 | P.HP_ITS ---
Providers/Chief Complaint 2 Admitting Physician: Ilir Roach MD Chief Complaint: right side abd pain nausea History of Present Illness Shyam Sr is a 24 year old male who presents with acute cholecystitis. Patient reports several days of right upper quadrant pain. No abdominal surgeries. T. bili 1.5. CBD 8 mm. Medications/Allergies Home Medications ?Medication ?Instructions ?Recorded ?Confirmed ?Last Taken ?Type hydrocodone 5 mg-acetaminophen 325 1 tab PO Q8H PRN pa in #5 tabs 10/15/24 10/19/24 Unknown Rx mg tablet ketorolac 10 mg tablet 10 mg PO TID PRN pain #10 ta bs 10/15/24 10/19/24 10/18/24 Rx ondansetron 4 mg disintegrating 4 mg PO Q6H PRN nausea and 10/15/24 10/19/24 Unknown Rx tablet vomiting #14 tabs Allergies Allergy/AdvReac Type Severity Reaction Status Date / Time clarithromycin (From Biaxin) Allergy RASH Verified 12/27/23 01:29 PFSH Acute 2 PFSH: Medical History BMI 35.0-35.9,adult Mood disorder Anxiety Family History Mother Hypertension Social History Smoking and tobacco/nicotine status: unknown if used tobacco/nicotine Alcohol intake: never Substance/Drug Use: never Adopted: No Caregiver/support person: No service: No Current occupational exposures/hazards: No Current gender identity: Male Vitals/I&O/Wt Last Vital Signs Temp 99.4 F 10/19/24 04:14 Pulse 100 10/19/24 05:31 Resp 19 H 10/19/24 06:08 BP 135/97 10/19/24 05:31 Pulse Ox 95 10/19/24 05:31 O2 Del Method Room Air 10/19/24 04:14 10/18/24 10/19/24 10/19/24 22:59 06:59 14:59 Intake Total 1000 / 1000 Balance 1000 / 1000 Weight last 48 hrs Weight 280 lb Physical Exam 2 Narrative: Chest: Unlabored breathing room air. No lymphadenopathy. Heart: Regular rate and rhythm. Abdomen: Soft, tender right upper quadrant, mildly distended. No masses or lymphadenopathy. Data 10/19/24 05:41 10/19/24 05:41 A&P Assessment and plan (1) Acute calculous cholecystitis: Plan 24-year-old male who presents with acute cholecystitis. I have discussed the risks and benefits of laparoscopic cholecystectomy possible open and patient agrees to proceed. Patient understands that the risks of the surgery include postoperative infection, bleeding, bile leak, incisional hernia, and in very rare instances injuries to the bowel, common bile duct, portal vein, and liver failure. PDMP PDMP Reviewed: Not Reviewed Attestations 2 Medical Necessity Statement*: IV pain meds IV fluids, IV antibiotics Coding Level of Care Code 92287 Diagnoses Acute calculous cholecystitis K80.00
--- NOTE | 2024-10-19 11:11 | PC.NURSE ---
updated pt on NPO status and possible surgery scheduled for 1500 today
--- NOTE | 2024-10-19 12:20 | PC.NURSE ---
pt provided gown to change into, no further questions at this time. this nurse updated pt on delay for transfer to surgery/MS
[2024-10-19] MEDS: sodium chloride 0.9% 1,000 ML 30 ML IV (14:00)
--- NOTE | 2024-10-19 14:39 | ANES.PREANE2 ---
Pre-Anesthetic Assessment Height/Weight: Height 5 ft 11 in Weight 280 lb Temp Pulse Resp BP Pulse Ox O2 Del Method 99.1 F 109 H 16 133/91 93 Room Air 10/19/24 13:48 10/19/24 13:48 10/19/24 13:48 10/19/24 13:48 10/19/24 13:48 10/19/24 13:48 Preop Diagnosis: Acute cholecystitis Operation Date: 10/19/24 15:00 Proposed Procedures p Laparoscopic Cholecystectomy(Not Applicable) - Ilir Roach MD Was Beta Lorrie taken within 24 hours: N/A Was Clonidine taken within 24 hours: N/A Last intake: Intake Last Liquid Date 10/18/24 Last Liquid Time 20:30 Last Solid Date 10/18/24 Last Solid Time 20:30 Social No alcohol and No tobacco Exam alert, oriented x 3, clear to auscultation bilaterally and regular rate & rhythm Airway Submandibular: within normal limits Cervical ROM: within normal limits Mallampati: Class IV Comments: Comments: Very small mouth opening Anesthetic Plan ASA status: 2 Anesthesia: General Other: No prior issues with anesthesia Patient ate some crackers last night, nothing since that time Denies any cardiac or pulmonary issues BMI 39 Labs reviewed, leukocytosis noted Vitals are stable, tachycardia with HR 109 currently METs greater than 4 Plan for GETA Medications/Allergies Home Medications ?Medication ?Instructions ?Recorded ?Confirmed ?Last Taken ?Type hydrocodone 5 mg-acetaminophen 325 1 tab PO Q8H PRN pain #5 tabs 10/15/24 10/19/24 Unknown Rx mg tablet ketorolac 10 mg tablet 10 mg PO TID PRN pain #10 tabs 10/15/24 10/19/24 10/18/24 Rx ondansetron 4 mg disintegrating 4 mg PO Q6H PRN nausea and 10/15/24 10/19/24 Unknown Rx tablet vomiting #14 tabs Allergies Allergy/AdvReac Type Severity Reaction Status Date / Time clarithromycin (From Biaxin) Allergy RASH Verified 12/27/23 01:29 Current Medications Generic Name Dose Route Start Last Admin Trade Name Freq PRN Reason Stop Dose Admin Sodium Chloride 1,000 mls @ 30 mls/hr 10/19/24 14:00 10/19/24 14:00 Sodium Chloride 0.9% IV 05/23/25 13:59 30 mls/hr .Q24H PAUL Administration PFSH Anesthesia Medical History BMI 35.0-35.9,adult Mood disorder Anxiety Family History Mother Hypertension Social History Smoking and tobacco/nicotine status: unknown if used tobacco/nicotine Alcohol intake: never Substance/Drug Use: never Adopted: No Caregiver/support person: No service: No Current occupational exposures/hazards: No Current gender identity: Male Data Anesthesia 10/19/24 05:41 10/19/24 05:41 Short CBC 10/19/24 Range/Units 05:41 WBC 19.30 H (3.29-11.43) 10^3/uL Hgb 15.20 (11.27-16.99) g/dL Hct 45.2 (37-53) % MCV 87.9 (82-101) fl Plt Count 351 (157-399) 10^3/cmm Neut % (Auto) 81.0 % Neut # (Auto) 15.65 H (1.8-7.7) 10^3/uL BMP 10/19/24 05:41 Sodium 137 Potassium 3.6 Chloride 99 Carbon Dioxide 25 BUN 8 Creatinine 0.9 Glucose 107 Calcium 9.2 Liver Function 10/19/24 Range/Units 05:41 Total Bilirubin 1.5 H (0.15-1.2) mg/dL AST 33 (0-40) U/L ALT 29 (0-41) U/L Alkaline Phosphatase 123 (40-130) U/L Albumin 4.0 (3.5-5.2) g/dL Urine 10/19/24 Range/Units 05:40 Urine Color [place] A (Yellow) Urine Appearance Clear (CLEAR) Urine pH 5.5 (5-7) Ur Specific [place] 1.016 (1.005-1.030) Urine Protein Trace A (Negative) Urine Glucose (UA) Negative (Normal) Urine Ketones 1+ H (Negative) Urine Nitrate Negative (Negative) Urine Bilirubin 1+ H (Negative) Ur Leukocyte Esterase Trace A (Negative) Urine RBC 6-10 (0-2) /hpf Urine WBC 0-5 (0-5) /hpf
[2024-10-19] MEDS: ceFAZolin 3,000 MG in sodium chloride 0.9% (plus) 100 ML 200 MG IV (15:05)
[2024-10-19] MEDS: lidocaine-epi 1% 20 mL INJ INJECTION (15:49)
[2024-10-19] MEDS: BUPivacaine 0.5% INJ 30 mL INJECTION (17:41)
--- NOTE | 2024-10-19 18:15 | W.PM.BPON ---
Date of Procedure: 10/19/24 Surgeon: Dr. Roach Clerical Receptionist(s): Dr. Garrett Procedure(s) performed: laparoscopic converted to open partial cholecystectomy. Findings of the procedure(s): severe inflammatory changes in the right upper quadrant secondary to chronic cholecystitis. Omentum was adhered to gallbladder. Once taken down found a thick inflammatory rind around the gallbladder. Converted to an open cholecystectomy to better delineate the anatomy. Extremely difficult dissection due to friable gallbladder wall. Evacuated every single stone from the gallbladder. Elected to perform a partial cholecystectomy by firing a laparoscopic stapler with a blue load at the infundibulum. Left a drain at the resection bed. Inspected abdomen at the end of the case (duodenum, stomach, ascending colon, tranverse colon, and descending colon) and found no iatrogenic injuries. Confirmed adequate hemostasis. Estimated blood loss: 50cc Specimen(s) removed: Gallbladder Post-operative diagnosis: Chronic cholecystitis
--- NOTE | 2024-10-19 18:34 | PM.OP ---
Operative Report Date of procedure: October 19, 2024 Pre-op diagnosis: Acute cholecystitis Post-op diagnosis: other Post-op diagnosis: Chronic cholecystitis Post-op findings: Severe inflammatory changes in the right upper quadrant secondary to chronic cholecystitis. Omentum was adhered to gallbladder. Once taken down found a thick inflammatory rind around the gallbladder. Converted to an open cholecystectomy to better delineate the anatomy. Extremely difficult dissection due to friable gallbladder wall. Evacuated every single stone from the gallbladder. Elected to perform a partial cholecystectomy by firing a laparoscopic stapler with a blue load at the infundibulum. Left a drain at the resection bed. Inspected abdomen at the end of the case (duodenum, stomach, ascending colon, tranverse colon, and descending colon) and found no iatrogenic injuries. Confirmed adequate hemostasis. Procedure done: Laparoscopic converted to open cholecystectomy Implants: N/A Specimens removed/disposition: Gallbladder sent to pathology Pathology: Gallbladder sent to pathology Surgeon: Ilir Roach MD Sprinkler Fitter Apprentice: Rob Garrett Anesthesia: General Estimated blood loss (mL): 50 Complications: N/A Findings: Severe inflammatory changes in the right upper quadrant secondary to chronic cholecystitis. Omentum was adhered to gallbladder. Once taken down found a thick inflammatory rind around the gallbladder. Converted to an open cholecystectomy to better delineate the anatomy. Extremely difficult dissection due to friable gallbladder wall. Evacuated every single stone from the gallbladder. Elected to perform a partial cholecystectomy by firing a laparoscopic stapler with a blue load at the infundibulum. Left a drain at the resection bed. Inspected abdomen at the end of the case (duodenum, stomach, ascending colon, tranverse colon, and descending colon) and found no iatrogenic injuries. Confirmed adequate hemostasis. Condition: stable Disposition: observation Brief History: 24-year-old male who presented with right upper quadrant pain. Initially patient reported days of pain but on subsequent discussion with him and the family, he had been having pain for at least a year. Discussed risk and benefits and patient agreed to proceed with laparoscopic cholecystectomy possible open. Procedure: I discussed the risks and benefits of laparoscopic cholecystectomy possible open, and obtained consent prior to proceeding to the operating room. SCDs were utilized. Prophylactic antibiotics were administered. General anesthesia was induced. The patient was placed supine, and was prepped and draped in the usual sterile fashion. Insufflation to 15mmHg was achieved using a Veress needle at Valles's point. A 12mm optiview trocar was placed at the umbilicus under direct visualization. The left upper quadrant was inspected, and no injuries were noted. Two 5mm ports were placed in the right upper quadrant. The right upper quadrant was inspected and initially I could not visualize the gallbladder given severe inflammatory changes in the right upper quadrant. Using laparoscopic Kittners to perform blunt dissection, I managed to peel off the omentum off the gallbladder. The gallbladder was injected and tense. I was unable to grab it with laparoscopic graspers. In addition, it had a thick inflammatory rind. On closer inspection of the right hepatic lobe, I found dense addhesions between the liver and the abdominal cavity, which made it impossible to retract the gallbladder cephalad. Given these findings, I elected to convert to an open cholecystectomy. I made a right subcostal incision using the scalpel. I used electrocautery to dissect down to the posterior fascia. I entered the abdominal cavity sharply using scissors. I then used a Bookwalter for adequate exposure. I opened the gallbladder and emptied its contents. It was full of bile, purulent fluid, and large stones. I made sure to remove all the stones in the gallbladder. I was able to confirm that there remained no stones in the gallbladder and cystic duct by palpation. The gallbladder fundus was grabbed with a curved six, and I started dissecting the fundus off the liver using electrocautery. The dissection of the mid portion of the fundus was extremely difficult because it was friable and kept tearing. At this point, I paused the operation and called my partner Dr. Garrett for assistance. There were no other qualified staff to assist with this extremely challenging dissection. Having Dr. Garrett as my catalog library assistant, we readjusted the Bookwalter and examined the colon, duodenum, stomach, and we confirmed there were no iatrogenic injuries. We then focused our attention on dissecting the infundibulum off the cystic plate by using electrocautery. The dissection was difficult but we managed to dissect off the infundibulum with its gardiner intact. At this point, given the difficulty of the dissection and to prevent injury to the common bile duct and other structures of the vincenzo hepatis, we decided to proceed with a subtotal cholecystectomy. I used a laparoscopic stapler with a blue load and fired it at the infundibulum. I passed off the specimen and sent it to pathology. I inspected the staple line and noticed a small hole. I then oversewed the hole and the staple line using 3-0 vicryl. The right upper quadrant was irrigated with 2L of NS and adequate hemostasis in the dissection site was confirmed. I also confirmed the absence of any bile leaks. I proceeded to spray fibrin glue at the gallbladder fossa and left a piece of omentum over the cystic plate. Before closing the abdomen I confirmed that all counts were correct. I also inspected the abdomen and confirmed the absence of any injuries to the duodenum, stomach, colon. I left a subhepatic 19F [place] drain. The two fascial layers of the subcostal incision were closed separately using 0 looped PDS. Skin was closed using 3-0 Stratafix. The port site at the umbilicus was closed using 4-0 monocryl. Surgical glue was applied on both. An island dressing was applied. The patient woke up from anesthesia without any complications.
[2024-10-19] MEDS: fentaNYL 50 mcg/mL INJ 2mL IVP (18:46)
[2024-10-19] MEDS: ketorolac 30 mg/mL INJ IVP ×2 (18:53→21:32)
[2024-10-19 20:03] LABS: Glucose Point of Care 120 mg/dL (70-110)
[2024-10-19] MEDS: oxyCODONE-APAP 5-325 mg Tablet 1 TAB PO (22:43)
[2024-10-20] VITALS: BP 144/80; PULSE 79; RESP 18; TEMP 37; O2SAT 96
[2024-10-20] MEDS: ketorolac 30 mg/mL INJ IVP ×2 (02:08→08:17)
[2024-10-20 04:00] VITALS: BP 130/83; PULSE 79; RESP 17; TEMP 36.8; O2SAT 96
[2024-10-20 05:27] LABS: Basophils % 0.2 %; Hematocrit 42.5 % (37-53); Lymphocytes # 1.3 10^3/uL (0.8-4.8); Lymphocytes % 6.2 %; Mean Corpuscular HGB Conc 33.4 g/dL (30-55); Mean Corpuscular Hemoglobin 29.5 pg (27-33); Mean Corpuscular Volume 88.4 fl (82-101); Mean Platelet Volume 10.6 fL (7.4-10.4); Monocytes # 2.1 10^3/uL (0.2-0.9); Monocytes % 10.4 %; Neutrophils # 16.87 10^3/uL (1.8-7.7); Neutrophils % 82.7 %; Nucleated Red Blood Cells % 0 %; Platelet Count 331 10^3/cmm (157-399); Red Blood Count 4.81 10^6/uL (3.85-5.65); Red Cell Distribution Width 12.4 % (12.1-15.1)
[2024-10-20 05:56] LABS: Alanine Aminotransferase 33 U/L (0-41); Albumin Level 3.4 g/dL (3.5-5.2); Alkaline Phosphatase 110 U/L (40-130); Anion Gap 14.1 (5-19); Aspartate Amino Transferase 39 U/L (0-40); Blood Urea Nitrogen 8 mg/dL (6-20); Calcium 8.8 mg/dL (8.5-10.5); Carbon Dioxide 25 mmol/L (22-29); Chloride 101 mmol/L (98-107); Creatinine Clr Calc Pharmacy 171.5321; Globulin 4.1 g/dL (1.3-4.6); Glomerular Filtration Rate 104.6 mL/min (90-130); Glucose 112 mg/dL (65-115); Osmolality Calculated 281 mOsm/kg (285-295); Potassium 4.1 mmol/L (3.5-5.1); Sodium 136 mmol/L (136-145); Total Bilirubin 1.4 mg/dL (0.15-1.2); Total Protein 7.5 g/dL (6.6-8.7)
[2024-10-20 07:39] VITALS: BP 113/79; PULSE 82; RESP 15; TEMP 37; O2SAT 98
[2024-10-20] MEDS: piperacillin-tazobactam 3.375 GM in sodium chloride 0.9% (plus) 50 ML IV (08:17)
[2024-10-20 09:30] VITALS: RESP 16
[2024-10-20] MEDS: oxyCODONE-APAP 5-325 mg Tablet 1 TAB PO (09:30)
--- NOTE | 2024-10-20 10:00 | P.PN_ITS ---
Subjective 2 Subjective: Pain under control Drain is serosanguineous about 50 cc output Normal vitals Total bilirubin down to 1.4 from 1.5 Incision is clean dry intact Tolerating regular diet Vitals/I&O/Wt Last Vital Signs Temp 98.6 F 10/20/24 07:39 Pulse 82 10/20/24 07:39 Resp 16 10/20/24 09:30 BP 113/79 10/20/24 07:39 Pulse Ox 98 10/20/24 07:39 O2 Del Method Room Air 10/20/24 07:39 O2 Flow Rate 3 10/19/24 19:00 10/19/24 10/20/24 10/20/24 22:59 06:59 14:59 Intake Total 2100 / 3150 480 / 3630 360 / 360 Output Total 575 / 575 50 / 625 Balance 1525 / 2575 430 / 3005 360 / 360 Weight last 48 hrs Weight 274 lb 9.6 oz Weight 280 lb Weight 280 lb Physical Exam 2 Narrative: Chest: Unlabored breathing room air. No lymphadenopathy. Heart: Regular rate and rhythm. Abdomen: Soft, appropriately tender, nondistended. No masses or lymphadenopathy. Incision clean dry intact. Drain serosanguineous low output. Data 10/20/24 05:15 10/20/24 05:15 A&P Assessment and plan (1) Acute on chronic cholecystitis concurrent with and due to calculus of gallbladder and bile duct: Plan 24-year-old male who presented after 1 year of pain and 1 episode of pancreatitis with acute on chronic cholecystitis. Extremely difficult dissection and had a converted to open cholecystectomy. Today he is doing well. Pain is under control. Drain is serosanguineous with low output. Total bilirubin is down. Tolerating a regular diet. Incision clean dry intact. Cleared for discharge. Follow-up with me in 1 week for drain removal. Prescribing 7 days of antibiotics given persistent leukocytosis. PDMP PDMP Reviewed: Not Reviewed Attestations 2 Medical Necessity Statement*: IV fluids, IV pain meds, serial physical exams, IV antibiotics Coding Level of Care Code Acute Code for Chg Fwd Diagnoses Acute on chronic cholecystitis concurrent with and due to calculus of gallbladder and bile duct K80.66
--- NOTE | 2024-10-20 10:04 | PM.DCS ---
Discharge Providers Date of Admission: 10/19/24 19:59 Date of Discharge: October 20, 2024 Attending Provider at Admission: Ilir Roach MD Attending Provider at Discharge: Ilir Roach MD Diagnoses at Discharge Discharge Diagnosis (1) Acute on chronic cholecystitis concurrent with and due to calculus of gallbladder and bile duct: Status: Acute Reason for Visit Reason for Visit: right side abd pain nausea Hospital Course Hospital Course 24-year-old male who presented after 1 year of pain and a prior episode of pancreatitis to the ED with acute on chronic cholecystitis. Taken to the OR for laparoscopic cholecystectomy possible open. Severe inflammatory changes in the right upper quadrant. Friable gallbladder and therefore difficult dissection and identification of anatomy laparoscopically. Converted to an open cholecystectomy. Dr. Garrett was asked to assist due to the difficulty of the dissection. Performed a subtotal cholecystectomy successfully. Drain left in place. Following day the patient patient is doing well and tolerating a regular diet. Pain under control. Drain is serosanguineous with low output. Cleared for discharge. Follow-up in 1 week in clinic for drain removal. Physical Exam Narrative: Chest: Unlabored breathing room air. No lymphadenopathy. Heart: Regular rate and rhythm. Abdomen: Soft, appropriately tender, nondistended. Incision is clean dry intact. Drain is serosanguineous. Discharge Data Studies Completed and Pending Completed Studies During Hospitalization Category Date Time Status CT kidney stone 77586 Stat Cat Scan 10/19/24 06:19 Completed US gall bladder [id number] Stat Ultrasound 10/19/24 07:13 Completed Pending at discharge Category Date Time Status CMP [Comprehensive Metabolic Panel] AM LABS Lab 10/21/24 04:00 Ordered Pathology: Surgical [PTH] Routine Pth 10/19/24 17:30 Received Radiology Impressions Abdomen/Pelvis CT 10/19/24 06:19 IMPRESSION: Likely acute cholecystitis. Gallbladder Ultrasound 10/19/24 07:13 IMPRESSION: 1. Normally distended gallbladder with mild diffuse wall thickening and a few stones. Suspect early changes of acute cholecystitis. This does correlate with the recent CT findings on 10/19/2024. 2. Common bile duct is very slightly enlarged. No intrahepatic duct dilatation. Consider MRCP. Laboratory Results WBC 20.40 10^3/uL (3.29-11.43) H 10/20/24 05:15 RBC 4.81 10^6/uL (3.85-5.65) 10/20/24 05:15 Hgb 14.20 g/dL (11.27-16.99) 10/20/24 05:15 Hct 42.5 % (37-53) 10/20/24 05:15 MCV 88.4 fl (82-101) 10/20/24 05:15 MCH 29.5 pg (27-33) 10/20/24 05:15 MCHC 33.4 g/dL (30-55) 10/20/24 05:15 RDW 12.4 % (12.1-15.1) 10/20/24 05:15 Plt Count 331 10^3/cmm (157-399) 10/20/24 05:15 MPV 10.6 fL (7.4-10.4) H 10/20/24 05:15 Neut % (Auto) 82.7 % 10/20/24 05:15 Lymph % (Auto) 6.2 % 10/20/24 05:15 [place] % (Auto) 10.4 % 10/20/24 05:15 Eos % (Auto) 0.0 % 10/20/24 05:15 Baso % (Auto) 0.2 % 10/20/24 05:15 Neut # (Auto) 16.87 10^3/uL (1.8-7.7) H 10/20/24 05:15 Lymph # (Auto) 1.3 10^3/uL (0.8-4.8) 10/20/24 05:15 [place] # (Auto) 2.1 10^3/uL (0.2-0.9) H 10/20/24 05:15 Eos # (Auto) 0.0 10^3/uL (0.0-0.8) 10/20/24 05:15 Baso # (Auto) 0.0 10^3/uL (0.0-0.1) 10/20/24 05:15 Nucleated RBC % (auto) 0 % 10/20/24 05:15 Nucleated RBCs # 0.0 /100WBC 10/20/24 05:15 Sodium 136 mmol/L (136-145) 10/20/24 05:15 Potassium 4.1 mmol/L (3.5-5.1) 10/20/24 05:15 Chloride 101 mmol/L (98-107) 10/20/24 05:15 Carbon Dioxide 25 mmol/L (22-29) 10/20/24 05:15 Anion Gap 14.1 (5-19) 10/20/24 05:15 BUN 8 mg/dL (6-20) 10/20/24 05:15 Creatinine 0.9 mg/dL (0.7-1.2) 10/20/24 05:15 GFR Calculation 104.6 mL/min (90-130) 10/20/24 05:15 Glucose 112 mg/dL (65-115) 10/20/24 05:15 POC Glucose 120 mg/dL (70-110) H 10/19/24 20:00 Calculated Osmolality 281 mOsm/kg (285-295) L 10/20/24 05:15 Lactic Acid 1.0 mmol/L (0.5-2.2) 10/19/24 05:41 Calcium 8.8 mg/dL (8.5-10.5) 10/20/24 05:15 Total Bilirubin 1.4 mg/dL (0.15-1.2) H 10/20/24 05:15 AST 39 U/L (0-40) 10/20/24 05:15 ALT 33 U/L (0-41) 10/20/24 05:15 Alkaline Phosphatase 110 U/L (40-130) 10/20/24 05:15 Total Protein 7.5 g/dL (6.6-8.7) 10/20/24 05:15 Albumin 3.4 g/dL (3.5-5.2) L 10/20/24 05:15 Globulin 4.1 g/dL (1.3-4.6) 10/20/24 05:15 Urine Color [place] (Yellow) A 10/19/24 05:40 Urine Appearance Clear (CLEAR) 10/19/24 05:40 Urine pH 5.5 (5-7) 10/19/24 05:40 Ur Specific [place] 1.016 (1.005-1.030) 10/19/24 05:40 Urine Protein Trace (Negative) A 10/19/24 05:40 Urine Glucose (UA) Negative (Normal) 10/19/24 05:40 Urine Ketones 1+ (Negative) H 10/19/24 05:40 Urine Blood 2+ (Negative) A 10/19/24 05:40 Urine Nitrate Negative (Negative) 10/19/24 05:40 Urine Bilirubin 1+ (Negative) H 10/19/24 05:40 Urine Urobilinogen 2.0 mg/dL (Negative) H 10/19/24 05:40 Ur Leukocyte Esterase Trace (Negative) A 10/19/24 05:40 Urine RBC 6-10 /hpf (0-2) 10/19/24 05:40 Urine WBC 0-5 /hpf (0-5) 10/19/24 05:40 Ur Squamous Epith Cells 0-5 /hpf (0-5) 10/19/24 05:40 Amorphous Sediment Not Reportable 10/19/24 05:40 Urine Bacteria None seen /hpf (NONE) 10/19/24 05:40 Hyaline Casts 1.21 /lpf 10/19/24 05:40 Blood Type A Positive 10/19/24 16:50 Rho(D) Type Rh positive 10/19/24 16:50 Antibody Screen Negative 10/19/24 16:50 Vitals Last Vital Signs Temp 98.6 F 10/20/24 07:39 Pulse 82 10/20/24 07:39 Resp 16 10/20/24 09:30 BP 113/79 10/20/24 07:39 Pulse Ox 98 10/20/24 07:39 O2 Del Method Room Air 10/20/24 07:39 O2 Flow Rate 3 10/19/24 19:00 Discharge Plan Discharge Patient Disposition: Home Condition: Stable Prescriptions: New oxycodone 5 mg tablet 5 mg PO Q6H PRN (Reason: pain) 5 Days Qty: 10 0RF amoxicillin-pot clavulanate 875-125 mg tablet 1 tab PO Q12H 7 Days Qty: 14 0RF Continued hydrocodone-acetaminophen 5-325 mg tablet 1 tab PO Q8H PRN (Reason: pain) Qty: 5 0RF ketorolac 10 mg tablet 10 mg PO TID PRN (Reason: pain) Qty: 10 0RF ondansetron 4 mg tablet,disintegrating 4 mg PO Q6H PRN (Reason: nausea and vomiting) Qty: 14 0RF Discharge Orders: Discharge Order (Routine); Ordered 10/20/24 Ordered By: Ilir Roach Referrals: Ilir Roach MD [Physician, General Surgery] - 1 week Discharge Diet: Regular Discharge Activity: Limit activity as instructed Patient Instructions: Acute Wound Care (DC), Opioid Safety, Post Anesthesia Care Activity Restrictions/Additional Instructions: 1. No heavy exercise or lifting greater than 10lbs for 6 weeks. 2. No pools, saunas, bathtubs for [address] if taking narcotics. 4. You may take over the counter tylenol 650mg every 6 hrs and ibuprofen 400mg every 6 hrs as needed for 5 days in addition to the oxycodone. 5. Follow-up in clinic in 1 week. 6. Call the office if you have any concerns or questions. Call the office if your drain turns yellow or green. Call the office if you develop a fever. Discharge Attestations Time Spent in Discharge Care*: greater than 30 min Status at Discharge: Cognitive status at discharge: cognitively intact, Behavioral status at discharge: cooperative, Quality Metrics Clinical Quality Measures [ No reported AMI, CVA or VTE this stay] Coding Level of Care Code Acute Code for Chg Fwd Diagnoses Acute on chronic cholecystitis concurrent with and due to calculus of gallbladder and bile duct K80.66
[2024-10-20 11:51] VITALS: BP 113/79; PULSE 82; RESP 15; TEMP 37; O2SAT 98
--- NOTE | 2024-10-20 11:51 | PC.NURSE ---
Discharge: Pt leaving with drain in place. Education provided on how to drain at home.
[2024-10-20 11:55] VITALS: BP 122/76; PULSE 60; RESP 15; TEMP 37; O2SAT 98
== END 2024-10-20 11:57 | disposition home or self-care (01) | DRG 416 ==
LOC: ER 05:22 → ER IP 09:22 → MEDSURG 13:36 → ER IP 10-20 09:28
PROVIDERS: Admitting Provider Student in an Organized Health Care Education/Training Program; Emergency Provider Family Medicine; Visit Provider Student in an Organized Health Care Education/Training Program
PROC: 0FT44ZZ Resection of Gallbladder, Percutaneous Endoscopic Approach (ICD-10-PCS; CPT 47562; principal; 2024-10-19 15:00)
DX: K80.66 Calculus of gallbladder and bile duct with acute and chronic cholecystitis without obstruction (principal); F39 Unspecified mood [affective] disorder; F41.9 Anxiety disorder, unspecified
CPT/HCPCS: 36415; 36416; 74176; 76705; 80053; 81001; 82962; 83605; 85025; 86850; 86900; 88304; 93005; 96365; 96375; 99285; C9250; J0131; J0330; J0690; J1100; J1171; J1885; J2250; J2270; J2405; J2543; J2704; J3010; J3490; J7030; J9999

== ENCOUNTER 2024-10-30 21:40 | Emergency (ER) | payer OTHER, SELFPAY ==
[2024-10-30 21:48] VITALS: BP 136/91; PULSE 100; RESP 16; TEMP 37; O2SAT 94
[2024-10-30 22:53] VITALS: BP 131/79; PULSE 89; RESP 16; O2SAT 93
[2024-10-30 23:43] LABS: Basophils # 0.1 10^3/uL (0.0-0.1); Basophils % 0.3 %; Eosinophils # 0.1 10^3/uL (0.0-0.8); Eosinophils % 0.5 %; Hematocrit 44.3 % (37-53); Lymphocytes # 1.7 10^3/uL (0.8-4.8); Lymphocytes % 8.3 %; Mean Corpuscular HGB Conc 32.5 g/dL (30-55); Mean Corpuscular Volume 89.3 fl (82-101); Monocytes # 1.6 10^3/uL (0.2-0.9); Monocytes % 7.8 %; Neutrophils % 82.3 %; Nucleated Red Blood Cells % 0 %; Platelet Count 578 10^3/cmm (157-399); Red Blood Count 4.96 10^6/uL (3.85-5.65); Red Cell Distribution Width 12.9 % (12.1-15.1); White Blood Count 20.44 10^3/uL (3.29-11.43)
--- NOTE | 2024-10-30 23:44 | W.ED.ABDPA2 ---
Documented by User: ANIL Pizano 10/31/24 09:01 HPI - Abdominal Pain General: Chief Complaint: General Medical Stated Complaint: Drain from Surgery is yellow Time Seen by Provider: 10/30/24 23:03 Source: patient and family Mode of arrival: ambulatory Limitations: no limitations History of Present Illness: Patient is a 24-year-old male who is approximately 12 days postop from an open cholecystectomy by Dr. Roach with assistance by Dr. Garrett here for concerns of yellow drainage to his EARLE drain. Patient states before he felt like drainage was bloody. He states he was told to reach out to his surgeon if the discharge turned yellow. He states overall he feels like he is slowly recovering from surgery and feels like his pain is improving. He has not ran fevers. He has not noticed any yellowing to his skin or eyes. Mother does report a significantly decreased appetite. He has not had any vomiting. He arrives with stable vital signs. He feels like his incision is healing well. He does have follow-up with Dr. Roach this for drain removal. MD elicited complaint: other (EARLE drain output concerns) Pertinent past history: none Radiation: none Migration to: no migration Exacerbating factors: nothing Relieving factors: nothing Associated Symptoms: Reports nausea; Denies change in bowel habits, chills, dysuria, fever(s), hematuria and vomiting Related Data Previous Rx's ?Medication ?Instructions ?Recorded hydrocodone 5 mg-acetaminophen 325 1 tab PO Q8H PRN pain #5 tabs 10/15/24 mg tablet ketorolac 10 mg tablet 10 mg PO TID PRN pain #10 tabs 10/15/24 ondansetron 4 mg disintegrating 4 mg PO Q6H PRN nausea and 10/15/24 tablet vomiting #14 tabs Allergies Allergy/AdvReac Type Severity Reaction Status Date / Time clarithromycin (From Biaxin) Allergy RASH Verified 10/30/24 21:53 Review of Systems Const: Denies: fever(s), chills, body aches, fatigue or malaise Card: Denies: chest pain Resp: Denies: dyspnea GI: Reports: abdominal pain (feels like this is improving) and nausea; Denies: vomiting or change in bowel habits : Denies: flank pain, dysuria or hematuria Musc: Denies: back pain Neuro: Denies: dizziness PFS ED PFSH: Medical History BMI 35.0-35.9,adult Mood disorder Anxiety Family History Mother Hypertension Social History Smoking and tobacco/nicotine status: unknown if used tobacco/nicotine Alcohol intake: never Substance/Drug Use: never Adopted: No Caregiver/support person: No service: No Current occupational exposures/hazards: No Current gender identity: Male Course ED course: Care transferred to Dr. Hoskins as my shift is ending. I have spoken to Dr. Garrett and we currently have CT scan pending ES Consultations: Consultation #1: Dr. Garrett-reviewed labs, recommending CT abdomen/pelvis-could potentially need MRCP but recommend we call back with CT results Vital Signs: Vital signs: Vital Signs Temperature 98.4 F 10/31/24 04:41 Pulse Rate 108 H 10/31/24 04:00 Respiratory Rate 17 10/31/24 07:25 Blood Pressure 140/85 10/31/24 07:00 Pulse Oximetry 97 10/31/24 07:25 Oxygen Delivery Me thod Nasal Cannula 10/31/24 07:00 Oxygen Flow Rate 2 10/31/24 03:00 MDM - Abdominal Pain Lab Data 10/30/24 23:30 10/30/24 23:30 Labs/Radiology: Radiology Impressions Abdomen/Pelvis CT 10/31/24 00:37 IMPRESSION: 1. Multiple fluid collections in the peritoneal cavity as described above. Given the low fluid density, a bile leak is suspected rather than hematomas. Consider correlation with hepatobiliary scintigraphy to demonstrate the leak. MRCP with stent placement in the extrahepatic bile ducts may be diagnostic and therapeutic. 2. Correlate clinically as to the possibility of superimposed infection. 3. Fluid collections and inflammatory changes of the gastric wall. Findings were discussed with Dr. Hoskins at 10/31/2024 3:52 AM CDT. COMMENTS: Consistent with the [employer]'s Incidental Findings Committee white paper (J Am Thelma Radiol 2018): Any incidental renal lesion less than 1 cm or classified as too small to characterize, or any incidental cystic renal lesion characterized as simple-appearing, is likely benign. No follow-up imaging is recommended for these lesions per consensus recommendations based on imaging criteria. Chest CTA 10/31/24 04:14 IMPRESSION: 1. No evidence of pulmonary embolus. 2. There the the is a band like area of consolidation in the left lower lobe. This may represent atelectasis or in the appropriate clinical setting, pneumonia. 3. There are discrete areas of increased enhancement in the bilateral renal parenchyma. These are favored to represent areas of inflammation, possible pyelonephritis. Scarring/fibrosis may present a similar picture. Please refer to the concomitant CT scan of the abdomen pelvis of 08/03/2024 for additional abdominal findings. Laboratory Results WBC 20.44 10^3/uL (3.29-11.43) H 10/30/24 23:30 RBC 4.96 10^6/uL (3.85-5.65) 10/30/24 23:30 Hgb 14.40 g/dL (11.27-16.99) 10/30/24 23:30 Hct 44.3 % (37-53) 10/30/24 23:30 MCV 89.3 fl (82-101) 10/30/24 23:30 MCH 29.0 pg (27-33) 10/30/24 23:30 MCHC 32.5 g/dL (30-55) 10/30/24 23:30 RDW 12.9 % (12.1-15.1) 10/30/24 23:30 Plt Count 578 10^3/cmm (157-399) H 10/30/24 23:30 MPV 10.0 fL (7.4-10.4) 10/30/24 23:30 Neut % (Auto) 82.3 % 10/30/24 23:30 Lymph % (Auto) 8.3 % 10/30/24 23:30 [place] % (Auto) 7.8 % 10/30/24 23:30 Eos % (Auto) 0.5 % 10/30/24 23:30 Baso % (Auto) 0.3 % 10/30/24 23:30 Neut # (Auto) 16.80 10^3/uL (1.8-7.7) H 10/30/24 23:30 Lymph # (Auto) 1.7 10^3/uL (0.8-4.8) 10/30/24 23:30 [place] # (Auto) 1.6 10^3/uL (0.2-0.9) H 10/30/24 23:30 Eos # (Auto) 0.1 10^3/uL (0.0-0.8) 10/30/24 23:30 Baso # (Auto) 0.1 10^3/uL (0.0-0.1) 10/30/24 23:30 Nucleated RBC % (auto) 0 % 10/30/24 23:30 Nucleated RBCs # 0.0 /100WBC 10/30/24 23:30 Sodium 136 mmol/L (136-145) 10/30/24 23:30 Potassium 4.3 mmol/L (3.5-5.1) 10/30/24 23:30 Chloride 94 mmol/L (98-107) L 10/30/24 23:30 Carbon Dioxide 26 mmol/L (22-29) 10/30/24 23:30 Anion Gap 20.3 (5-19) H 10/30/24 23:30 BUN 14 mg/dL (6-20) 10/30/24 23:30 Creatinine 0.8 mg/dL (0.7-1.2) 10/30/24 23:30 GFR Calculation 119.8 mL/min (90-130) 10/30/24 23:30 Glucose 95 mg/dL (65-115) 10/30/24 23:30 Calculated Osmolality 282 mOsm/kg (285-295) L 10/30/24 23:30 Calcium 9.1 mg/dL (8.5-10.5) 10/30/24 23:30 Total Bilirubin 1.9 mg/dL (0.15-1.2) H 10/30/24 23:30 AST 71 U/L (0-40) H 10/30/24 23:30 ALT 61 U/L (0-41) H 10/30/24 23:30 Alkaline Phosphatase 350 U/L (40-130) H 10/30/24 23:30 Total Protein 7.8 g/dL (6.6-8.7) 10/30/24 23:30 Albumin 3.2 g/dL (3.5-5.2) L 10/30/24 23:30 Globulin 4.6 g/dL (1.3-4.6) 10/30/24 23:30 Lipase 57 U/L (13-60) 10/30/24 23:30 All radiology interpretation(s) finalized by discharge Discharge Plan Discharge Condition: Stable Prescriptions: No Action hydrocodone-acetaminophen 5-325 mg tablet 1 tab PO Q8H PRN (Reason: pain) Qty: 5 0RF ketorolac 10 mg tablet 10 mg PO TID PRN (Reason: pain) Qty: 10 0RF ondansetron 4 mg tablet,disintegrating 4 mg PO Q6H PRN (Reason: nausea and vomiting) Qty: 14 0RF Referrals: Jeramy Paris DO [Primary Care Provider, [facility]] Print Language: Emirati Sign Out Sign Out Data: Patient Sign Out occurred on 10/31/24 at 04:14. Patient's care was discussed, and care was transferred from ANIL Pizano to Jeramy Hoskins MD. Coding Level of Care Code ED Communications Programmer for Chg Fwd Documented by User: Jeramy Hoskins MD 10/31/24 05:49 HPI - Abdominal Pain General: Chief Complaint: General Medical Stated Complaint: Drain from Surgery is yellow Time Seen by Provider: 10/30/24 23:03 Related Data Previous Rx's ?Medication ?Instructions ?Recorded hydrocodone 5 mg-acetaminophen 325 1 tab PO Q8H PRN pain #5 tabs 10/15/24 mg tablet ketorolac 10 mg tablet 10 mg PO TID PRN pain #10 tabs 10/15/24 ondansetron 4 mg disintegrating 4 mg PO Q6H PRN nausea and 10/15/24 tablet vomiting #14 tabs Allergies Allergy/AdvReac Type Severity Reaction Status Date / Time clarithromycin (From Biaxin) Allergy RASH Verified 10/30/24 21:53 PFSH ED PFSH: Medical History BMI 35.0-35.9,adult Mood disorder Anxiety Family History Mother Hypertension Social History Smoking and tobacco/nicotine status: unknown if used tobacco/nicotine Alcohol intake: never Substance/Drug Use: never Adopted: No Caregiver/support person: No service: No Current occupational exposures/hazards: No Current gender identity: Male Course Vital Signs: Vital signs: Vital Signs Temperature 98.4 F 10/31/24 04:41 Pulse Rate 108 H 10/31/24 04:00 Respiratory Rate 17 10/31/24 07:25 Blood Pressure 140/85 10/31/24 07:00 Pulse Oximetry 97 10/31/24 07:25 Oxygen Delivery Me thod Nasal Cannula 10/31/24 07:00 Oxygen Flow Rate 2 10/31/24 03:00 MDM - Abdominal Pain Medical Decision Making In summary, patient is a 24-year-old male status post open cholecystectomy performed 12 days ago here at [facility]. His surgical course was complicated and he was left with a EARLE drain in place. This drain was post be removed in 2 days. He arrives to the emergency department with increasing abdominal pain. He was found to be tachycardic, borderline hypoxic, with white blood cell count of 20,000. CT scan shows what appears to be a bile leak with multiple fluid collections throughout the abdomen. I spoke with on-call general surgery who recommended the patient be transferred to someplace with a higher level of care and they expect he would first require either ERCP or MRCP and stenting. He was given IV Zosyn and pain was controlled with morphine. Given his hypoxia and tachycardia CT of the chest was performed fortunately not showing evidence of PE. I spoke with the hospitalist service at [facility], Dr. Sheffield, who agrees to accept the patient in transfer but would like us to run the case past GI before doing so. At time of shift change, phone call with GI service at [facility] has not been initiated. Pertinent details of the case were shared with the oncoming emergency physician who will help facilitate ultimate disposition once [facility] gastroenterology has waited on the case Lab Data 10/30/24 23:30 10/30/24 23:30 Labs/Radiology: Radiology Impressions Abdomen/Pelvis CT 10/31/24 00:37 IMPRESSION: 1. Multiple fluid collections in the peritoneal cavity as described above. Given the low fluid density, a bile leak is suspected rather than hematomas. Consider correlation with hepatobiliary scintigraphy to demonstrate the leak. MRCP with stent placement in the extrahepatic bile ducts may be diagnostic and therapeutic. 2. Correlate clinically as to the possibility of superimposed infection. 3. Fluid collections and inflammatory changes of the gastric wall. Findings were discussed with Dr. Hoskins at 10/31/2024 3:52 AM CDT. COMMENTS: Consistent with the [employer]'s Incidental Findings Committee white paper (J Am Thelma Radiol 2018): Any incidental renal lesion less than 1 cm or classified as too small to characterize, or any incidental cystic renal lesion characterized as simple-appearing, is likely benign. No follow-up imaging is recommended for these lesions per consensus recommendations based on imaging criteria. Chest CTA 10/31/24 04:14 IMPRESSION: 1. No evidence of pulmonary embolus. 2. There the the is a band like area of consolidation in the left lower lobe. This may represent atelectasis or in the appropriate clinical setting, pneumonia. 3. There are discrete areas of increased enhancement in the bilateral renal parenchyma. These are favored to represent areas of inflammation, possible pyelonephritis. Scarring/fibrosis may present a similar picture. Please refer to the concomitant CT scan of the abdomen pelvis of 08/03/2024 for additional abdominal findings. Laboratory Results WBC 20.44 10^3/uL (3.29-11.43) H 10/30/24 23:30 RBC 4.96 10^6/uL (3.85-5.65) 10/30/24 23:30 Hgb 14.40 g/dL (11.27-16.99) 10/30/24 23:30 Hct 44.3 % (37-53) 10/30/24 23:30 MCV 89.3 fl (82-101) 10/30/24 23:30 MCH 29.0 pg (27-33) 10/30/24 23:30 MCHC 32.5 g/dL (30-55) 10/30/24 23:30 RDW 12.9 % (12.1-15.1) 10/30/24 23:30 Plt Count 578 10^3/cmm (157-399) H 10/30/24 23:30 MPV 10.0 fL (7.4-10.4) 10/30/24 23:30 Neut % (Auto) 82.3 % 10/30/24 23:30 Lymph % (Auto) 8.3 % 10/30/24 23:30 [place] % (Auto) 7.8 % 10/30/24 23: Eos % (Auto) 0.5 % 10/30/24 23: Baso % (Auto) 0.3 % 10/30/24 23: Neut # (Auto) 16.80 10^3/uL (1.8-7.7) H 10/30/24 23:30 Lymph # (Auto) 1.7 10^3/uL (0.8-4.8) 10/30/24 23: [place] # (Auto) 1.6 10^3/uL (0.2-0.9) H 10/30/24 23:30 Eos # (Auto) 0.1 10^3/uL (0.0-0.8) 10/30/24: Baso # (Auto) 0.1 10^3/uL (0.0-0.1) 10/30/24 23: Nucleated RBC % (auto) 0 % 10/30/24: Nucleated RBCs # 0.0 /100WBC 10/30/24 23: Sodium 136 mmol/L (136-145) 10/30/24 23: Potassium 4.3 mmol/L (3.5-5.1) 10/30/24: Chloride 94 mmol/L (98-107) L 10/30/24 23: Carbon Dioxide 26 mmol/L (22-29) 10/30/24 23: Anion Gap 20.3 (5-19) H 10/30/24 23:30 BUN 14 mg/dL (6-20) 10/30/24 23: Creatinine 0.8 mg/dL (0.7-1.2) 10/30/24 23: GFR Calculation 119.8 mL/min (90-130) 10/30/24 23: Glucose 95 mg/dL (65-115) 10/30/24 23: Calculated Osmolality 282 mOsm/kg (285-295) L 06/02/25 23:30 Calcium 9.1 mg/dL (8.5-10.5) 10/30/24 23:30 Total Bilirubin 1.9 mg/dL (0.15-1.2) H 10/30/24 23:30 AST 71 U/L (0-40) H 10/30/24 23:30 ALT 61 U/L (0-41) H 10/30/24 23:30 Alkaline Phosphatase 350 U/L (40-130) H 10/30/24 23:30 Total Protein 7.8 g/dL (6.6-8.7) 10/30/24 23:30 Albumin 3.2 g/dL (3.5-5.2) L 10/30/24 23:30 Globulin 4.6 g/dL (1.3-4.6) 10/30/24 23:30 Lipase 57 U/L (13-60) 10/30/24 23:30 Discharge Plan Discharge Condition: Stable Prescriptions: No Action hydrocodone-acetaminophen 5-325 mg tablet 1 tab PO Q8H PRN (Reason: pain) Qty: 5 0RF ketorolac 10 mg tablet 10 mg PO TID PRN (Reason: pain) Qty: 10 0RF ondansetron 4 mg tablet,disintegrating 4 mg PO Q6H PRN (Reason: nausea and vomiting) Qty: 14 0RF Referrals: Jeramy Paris DO [Primary Care Provider, [facility]] Print Language: Emirati Sign Out Sign Out Data: Patient Sign Out occurred on 10/31/24 at 04:14. Patient's care was discussed, and care was transferred from ANIL Pizano to Jeramy Hoskins MD. Coding Level of Care Code ED Communications Programmer for Carlos Mckeon
[2024-10-31] VITALS (21 sets, daily range): BP systolic 116–147; BP diastolic 65–90; PULSE 68–123; RESP 16–20; TEMP 36.7–36.9; O2SAT 90–97
[2024-10-31 00:01] LABS: Alanine Aminotransferase 61 U/L (0-41); Albumin Level 3.2 g/dL (3.5-5.2); Alkaline Phosphatase 350 U/L (40-130); Anion Gap 20.3 (5-19); Aspartate Amino Transferase 71 U/L (0-40); Blood Urea Nitrogen 14 mg/dL (6-20); Calcium 9.1 mg/dL (8.5-10.5); Carbon Dioxide 26 mmol/L (22-29); Chloride 94 mmol/L (98-107); Creatinine Clr Calc Pharmacy 194.9643; Globulin 4.6 g/dL (1.3-4.6); Glomerular Filtration Rate 119.8 mL/min (90-130); Glucose 95 mg/dL (65-115); Lipase 57 U/L (13-60); Osmolality Calculated 282 mOsm/kg (285-295); Potassium 4.3 mmol/L (3.5-5.1); Sodium 136 mmol/L (136-145); Total Bilirubin 1.9 mg/dL (0.15-1.2); Total Protein 7.8 g/dL (6.6-8.7)
--- NOTE | 2024-10-31 00:37 | CTR_ITS ---
PROCEDURE INFORMATION: Exam: CT Abdomen And Pelvis With Contrast Exam date and time: 10/31/2024 1:02 AM Age: 24 years old Clinical indication: Abdominal pain; Other: Gb; Prior surgery; Surgery date: <1 month; Surgery type: Cholecystectomy 10/19; Additional info: Recent chava; Reporting yellow pravin drainage TECHNIQUE: Imaging protocol: Computed tomography of the abdomen and pelvis with contrast. Radiation optimization: All CT scans at this facility use at least one of these dose optimization techniques: automated exposure control; mA and/or kV adjustment per patient size (includes targeted exams where dose is matched to clinical indication); or iterative reconstruction. Contrast material: OMNI 350; Contrast volume: 100 ml; Contrast route: INTRAVENOUS (IV); COMPARISON: CT kidney stone [id number] 19/10/2024 06:42 RADIATION DOSE METRICS: Total DLP (mGy-cm): 1289.09 FINDINGS: Tubes, catheters and devices: There is a Ramone-Palacios drainage catheter along the right paracolic gutter. Lungs: Left lower lobe atelectasis or consolidation. Liver: The liver is normal in size. There are no enhancing liver masses. Gallbladder and biliary ducts: There has been a cholecystectomy. There is a fluid collection in the gallbladder fossa containing the surgical clips at the stump of the cystic duct. Multiple additional fluid collections are seen along the undersurface of the liver and in the subdiaphragmatic space. Pancreas: Normal in size and homogeneous enhancement. No ductal dilation. Spleen: Normal. No splenomegaly. Adrenal glands: Normal. No mass. Kidneys and ureters: No hydronephrosis. No renal or obstructive ureteral calculi. There are multiple subcentimeter bilateral renal hypodensities, too small to characterize. Stomach and bowel: There are fluid collections along the gastric wall and inflammatory changes of the gastric wall. Appendix: No evidence of appendicitis. Intraperitoneal space: There is fluid tracking along the left paracolic gutter into the colovesical space in the pelvis. Vasculature: There is no abdominal aortic aneurysm. There is a small 8 mm calcification on the posterior wall of the inferior vena cava, likely old calcified thrombus. Lymph nodes: No enlarged retroperitoneal or mesenteric lymph nodes. Urinary bladder: The bladder shows a normal contour and is free of calcific opacities. Reproductive: Unremarkable as visualized. Bones/joints: No acute fracture. Soft tissues: Normal. CT/CT abdomen pelvis w con* [id number] IMPRESSION: 1. Multiple fluid collections in the peritoneal cavity as described above. Given the low fluid density, a bile leak is suspected rather than hematomas. Consider correlation with hepatobiliary scintigraphy to demonstrate the leak. MRCP with stent placement in the extrahepatic bile ducts may be diagnostic and therapeutic. 2. Correlate clinically as to the possibility of superimposed infection. 3. Fluid collections and inflammatory changes of the gastric wall. Findings were discussed with Dr. Hoskins at 10/31/2024 3:52 AM CDT. COMMENTS: Consistent with the [employer]'s Incidental Findings Committee white paper (J Am Thelma Radiol 2018): Any incidental renal lesion less than 1 cm or classified as too small to characterize, or any incidental cystic renal lesion characterized as simple-appearing, is likely benign. No follow-up imaging is recommended for these lesions per consensus recommendations based on imaging criteria.
[2024-10-31] MEDS: iohexol 350 mg/mL 500 mL Btl (per mL) IV ×2 (01:13→04:36)
[2024-10-31] MEDS: oxyCODONE-APAP 5-325 mg Tablet 1 TAB PO (01:30)
--- NOTE | 2024-10-31 04:14 | CTR_ITS ---
PROCEDURE INFORMATION: Exam: CTA Chest With Contrast Exam date and time: 10/31/2024 4:34 AM Age: 24 years old Clinical indication: Other: Hypoxia, tachycardia; Prior surgery; Surgery date: <1 month; Surgery type: Gallbladder drain; Additional info: Hypoxia, tachycardia, post surgical TECHNIQUE: Imaging protocol: Computed tomographic angiography of the chest with contrast. Exam focused on the arteries. 3D rendering (Not supervised by radiologist): MIP and/or 3D reconstructed images were created by the technologist. Radiation optimization: All CT scans at this facility use at least one of these dose optimization techniques: automated exposure control; mA and/or kV adjustment per patient size (includes targeted exams where dose is matched to clinical indication); or iterative reconstruction. Contrast material: OMNI 350; Contrast volume: 80 ml; Contrast route: INTRAVENOUS (IV); COMPARISON: CT abdomen pelvis w con* [id number] 08/03/2024 01:02 RADIATION DOSE METRICS: Total DLP (mGy-cm): 483.8 FINDINGS: Pulmonary arteries: No filling defects in the pulmonary arteries to suggest pulmonary emboli. Aorta: There is no thoracic aortic aneurysm or dissection. Lungs: There is incomplete lung expansion and crowding of the vascular markings. There is a band like area of consolidation in the left lower lobe. Pleural spaces: Unremarkable. No pneumothorax. No pleural effusion. Heart: The heart is normal in size. There are no pericardial fluid collections. Esophagus: Thickening and inflammatory changes of the esophageal wall consistent with esophagitis. Lymph nodes: No enlarged mediastinal or hilar lymph nodes are seen. Bones/joints: No acute fracture is seen. Soft tissues: Unremarkable. Other findings: Delayed images demonstrate discrete areas of increased enhancement in the bilateral renal parenchyma. CT/CT angio chest PE protcl [id number] IMPRESSION: 1. No evidence of pulmonary embolus. 2. There the the is a band like area of consolidation in the left lower lobe. This may represent atelectasis or in the appropriate clinical setting, pneumonia. 3. There are discrete areas of increased enhancement in the bilateral renal parenchyma. These are favored to represent areas of inflammation, possible pyelonephritis. Scarring/fibrosis may present a similar picture. Please refer to the concomitant CT scan of the abdomen pelvis of 08/03/2024 for additional abdominal findings.
[2024-10-31] MEDS: morphine 4 mg/mL SDV 1 mL IVP ×7 (04:17→21:00)
[2024-10-31] MEDS: piperacillin-tazobactam 3.375 GM in sodium chloride 0.9% (plus) 50 ML IV (04:17)
--- NOTE | 2024-10-31 06:56 | PC.NURSE ---
ASSUMED CARE OF PATIENT AT 0656 FROM [facility].
--- NOTE | 2024-10-31 07:31 | P.CONIM_ITS ---
Providers/Reason For Consult 2 Consulting Physician/Specialty*: dr. leary general surgery Reason for Consult*: postoperative bile leak Primary Care Provider: Jeramy Paris DO History of Present Illness History of Present Illness Shyam Sr is a 24 year old male with a history of acute on chronic cholecystitis for 1 year, past episode of pancreatitis, who underwent a laparoscopic converted to open cholecystectomy. Difficult dissection due to significant inflammatory changes in the right upper quadrant, as well as a necrotic posterior gallbladder wall. Performed a subtotal cholecystectomy and left a drain. The patient has been doing well until last night when he noticed the drain turned bilious. T bili 1.9, WBC 20, tachycardic but otherwise adequate hemodynamics, abdomen soft, non peritonitic, surgical drain is bilious. Medications/Allergies Home Medications ?Medication ?Instructions ?Recorded ?Confirmed ?Last Taken ?Type hydrocodone 5 mg-acetaminophen 325 1 tab PO Q8H PRN pa in #5 tabs 10/15/24 10/19/24 Unknown Rx mg tablet ketorolac 10 mg tablet 10 mg PO TID PRN pain #10 ta bs 10/15/24 10/19/24 10/18/24 Rx ondansetron 4 mg disintegrating 4 mg PO Q6H PRN nausea and 10/15/24 10/19/24 Unknown Rx tablet vomiting #14 tabs Allergies Allergy/AdvReac Type Severity Reaction Status Date / Time clarithromycin (From Biaxin) Allergy RASH Verified 10/30/24 21:53 PFSH Acute 2 PFSH: Medical History BMI 35.0-35.9,adult Mood disorder Anxiety Family History Mother Hypertension Social History Smoking and tobacco/nicotine status: unknown if used tobacco/nicotine Alcohol intake: never Substance/Drug Use: never Adopted: No Caregiver/support person: No service: No Current occupational exposures/hazards: No Current gender identity: Male Vitals/I&O/Wt Last Vital Signs Temp 98.4 F 10/31/24 04:41 Pulse 108 H 10/31/24 04:00 Resp 17 10/31/24 07:25 BP 140/85 10/31/24 07:00 Pulse Ox 97 10/31/24 07:25 O2 Del Method Nasal Cannula 10/31/24 07:00 O2 Flow Rate 2 10/31/24 03:00 10/30/24 10/31/24 10/31/24 22:59 06:59 14:59 Intake Total 50 / 50 Balance 50 / 50 Weight last 48 hrs Weight 280 lb Physical Exam 2 Narrative: Sinus tachycardia Unlabored breathing RA RUQ surgical incision healing well. Surgical drain bilious. Abdomen soft, non peritonitic. Data 10/30/24 23:30 10/30/24 23:30 A&P Assessment and plan (1) Bile leak, postoperative: Plan 24 yo male with a history of acute on chronic cholecystitis s/p lap converted to open cholecystectomy. Technically challenging cholecystectomy due to inflammatory changes and necrotic gallbladder. Surgical drain turned bilious overnight. Had an extensive discussion with the patient and answered all of his and his mother's questions. Plan is to be tranferred for ERCP to address the bile leak. He may need additional percutaneous drains by IR or a laparoscopic washout after the bile leak is controlled with a biliary stent. Transfer pending. PDMP PDMP Reviewed: Not Reviewed Coding Level of Care Code 39638 Diagnoses Bile leak, postoperative K91.89; K83.8
--- NOTE | 2024-10-31 07:32 | P.MISC_ITS ---
Miscellaneous Note Note: Full consult note to follow Known to me for a difficult open cholecystectomy. Pathology demonstrated a necrotic gallbladder. Drain is bilious. Awaiting transfer to [facility] for an ERCP. Discussed with patient and mother. Answered all their questions.
[2024-10-31] MEDS: sodium chloride 0.9% 1,000 ML 999 ML IV (13:48)
[2024-10-31] MEDS: sodium chloride 0.9% 1,000 ML 150 ML IV (14:59)
== END 2024-10-31 22:26 | disposition short-term general hospital (02) ==
PROVIDERS: Physician Assistant; Emergency Provider Student in an Organized Health Care Education/Training Program; PCP Family Medicine
DX: K91.89 Other postprocedural complications and disorders of digestive system (principal); Z98.890 Other specified postprocedural states; K83.8 Other specified diseases of biliary tract; R00.0 Tachycardia, unspecified; R09.02 Hypoxemia
CPT/HCPCS: 36415; 71275; 74177; 80053; 83690; 85025; 96361; 96374; 96376; 99285; J2270; J2543; J7030; J9999

== ENCOUNTER 2025-05-07 07:13 | Emergency (ER) | payer OTHER, SELFPAY ==
[2025-05-07 07:17] VITALS: BP 165/106; PULSE 78; RESP 16; TEMP 36.8; O2SAT 99; BMI 39.0
--- NOTE | 2025-05-07 07:20 | CT_ITS ---
WS: [id number] CT ABDOMEN AND PELVIS WITH CONTRAST HISTORY: rlq pain TECHNIQUE: Imaging performed of the abdomen and pelvis with IV contrast. Single phase imaging of the abdomen. Coronal and sagittal reformats are submitted. All CT scans at [facility] use at least one of these dose optimization techniques: automated exposure control; mA and/or kV adjustment per patient size (includes targeted exams where dose is matched to clinical indication); or iterative reconstruction. IV CONTRAST: Omnipaque 350; 100 mL IV. Oral contrast: No DLP: 1189.63 mGy.cm COMPARISON: 10/17/2024, 10/31/2024, 10/15/2024 Lower thorax: Lung bases are clear. Heart is normal size. No hiatal hernia. Liver/biliary system: Normal size liver. No intrahepatic duct dilatation. Normal portal vein. Gallbladder: By history the gallbladder has been surgically removed. There is a fluid collection within the gallbladder fossa with adjacent clips. The collection measures 2.5 x 5.4 and has decreased in size since 10/31/2024. No significant adjacent inflammation. Pancreas: Normal size pancreas. Common bile duct through the pancreatic head is normal. There is a fluid collection near the pancreatic tail measuring 4.3 x 4.8 cm. Greater contact on the greater curvature of the stomach than the pancreas. Spleen: Normal size spleen. No mass or infarct. Adrenal glands: Normal. Right kidney: Normal. Left kidney: Normal size kidney. No obstruction. Small cysts are identified. No obstruction. Aorta: Normal. There is a focal calcification within the IVC which has been present since at least 10/15/2024. Lymphadenopathy: None. Mild central sclerosing mesenteritis. Fat stranding surrounding the central vessels. Free fluid: None. GI tract: Stomach is well distended. There are 2 cystic masses which are well- circumscribed contacting the greater curvature of the stomach. The larger 1 previously described is 4.3 x 4.8 cm. There is a smaller collection measuring 2.5 x 2.5 cm. No small bowel obstruction. No evidence for appendicitis. Abdominal wall: There is mild soft tissue stranding and inflammation in the RIGHT abdominal wall. This is at the site of the previously noted surgical drain. No fluid collections. Pelvis: No free fluid or adenopathy within the pelvis. Bones: Unremarkable. CT/CT abdomen pelvis w con* [id number] IMPRESSION: 1. No renal obstruction or ureteral obstruction. 2. By history patient has undergone a prior cholecystectomy. There is a fluid collection within the gallbladder fossa measuring 2.5 x 5.4 cm. This collection was also described on 10/31/2024 but decreased. No inflammation in the gallbladd er fossa. 3. There are 2 additional well-circumscribed fluid collections which have decr eased in size since 10/31/2024. These collections both abut the greater curvature the stomach and have decreased in size since 10/31/2024. Suspect these may be ps eudocysts or residual bilomas. 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 4. No evidence for appendicitis. 5. Mild sclerosing mesenteritis.
--- NOTE | 2025-05-07 07:21 | W.ED.ABDPA2 ---
HPI - Abdominal Pain General: Chief Complaint: Abdominal Pain Stated Complaint: r side abd pain Time Seen by Provider: 05/07/25 07:18 Source: patient Mode of arrival: ambulatory Limitations: no limitations History of Present Illness: 25-year-old male states he has been having right sided abdominal pain since early this morning. States pain is sharp in nature he rates it 9 out of 10 he has had 2 episodes of vomiting as well he denies any fevers. Has had a history of cholecystectomy in the past. He denies any worse improving factors. Related Data Previous Rx's ?Medication ?Instructions ?Recorded ondansetron 4 mg disintegrating 4 mg PO Q8H PRN nausea and 11/09/24 tablet vomiting 7 days #21 tabs hydrocodone 5 mg-acetaminophen 325 1 tab PO Q6H PRN pain #14 tabs 05/07/25 mg tablet ondansetron 4 mg disintegrating 4 mg PO Q6H PRN nausea and 05/07/25 tablet vomiting #14 tabs Allergies Allergy/AdvReac Type Severity Reaction Status Date / Time clarithromycin (From Biaxin) Allergy RASH Verified 10/30/24 21:53 Review of Systems GI: Reports: abdominal pain [facility] ED PFSH: Medical History (Updated 05/07/25 @ 08:53 by Ish Singh MD) BMI 35.0-35.9,adult Mood disorder Anxiety Family History Mother Hypertension Social History (Updated 11/09/24 @ 09:06 by ABDI Velzaquez) Smoking and tobacco/nicotine status: never used tobacco/nicotine Alcohol intake: never Substance/Drug Use: never Adopted: No Caregiver/support person: No service: No Current occupational exposures/hazards: No Current gender identity: Male Physical Exam Const: COMMON NORMALS: no acute distress, patient oriented x3 and healthy appearing HENMT: COMMON NORMALS: normocephalic and atraumatic HEAD & SCALP: normocephalic and atraumatic Neck/C-Spine: COMMON NORMALS: full ROM and supple Chest: COMMONS NORMALS: normal inspection of the chest Resp: COMMON NORMALS: normal respiratory effort, No retractions, No use of accessory muscles and clear to auscultation bilaterally AUSCULTATION: clear to auscultation bilaterally Cardio: COMMON NORMALS: regular rate, regular rhythm and No murmurs present (Cardio) RATE: regular rate RHYTHM: regular rhythm GI: COMMON NORMALS: Normal to inspection, nondistended, normoactive bowel sounds present, Soft to palpation and no masses PALPATION: Yes Soft to palpation OTHER: right sided abd tenderness Extremity: COMMON NORMALS: normal to inspection and full ROM Neuro: COMMON NORMALS: patient oriented x3, moves all extremities and no focal motor deficits Psych: COMMON NORMALS: mental status grossly normal, Normal thought process present and cooperative THOUGHT PROCESS: Normal thought process present Skin: COMMON NORMALS: no rashes or lesions noted and no wounds GENERAL SKIN EXAM: no rashes or lesions noted Course Vital Signs: Vital signs: Vital Signs Temperature 98.2 F 05/07/25 07:17 Pulse Rate 78 05/07/25 07:17 Respiratory Rate 16 05/07/25 07:17 Blood Pressure 165/106 05/07/25 07:17 Pulse Oximetry 99 05/07/25 07:17 Oxygen Delivery Me thod Room Air 05/07/25 07:17 MDM - Abdominal Pain Medical Decision Making Patient presents here with abdominal pain since this morning differential includes pancreatitis, appendicitis, bowel obstruction. These were ruled out here CT showed none the above findings did review the findings had had a previous biloma he does still has fluid collections but they are decreased his exam at discharge is benign no tenderness he has no signs of acute surgical abdomen or abscess. Lab work showed no significant abnormality will prescribe hydrocodone along with Zofran and will get him follow-up with surgery he is to return if worsening I did go over all his findings with him he understands agrees to plan Medical Records I reviewed the patient's medical records. Lab Data I reviewed the patient's lab results. 05/07/25 07:31 05/07/25 07:31 Labs/Radiology: Radiology Impressions Abdomen/Pelvis CT 05/07/25 07:20 IMPRESSION: 1. No renal obstruction or ureteral obstruction. 2. By history patient has undergone a prior cholecystectomy. There is a fluid collection within the gallbladder fossa measuring 2.5 x 5.4 cm. This collection was also described on 10/31/2024 but decreased. No inflammation in the gallbladder fossa. 3. There are 2 additional well-circumscribed fluid collections which have decreased in size since 10/31/2024. These collections both abut the greater curvature the stomach and have decreased in size since 10/31/2024. Suspect these may be pseudocysts or residual bilomas. 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 4. No evidence for appendicitis. 5. Mild sclerosing mesenteritis. Laboratory Results WBC 13.90 10^3/uL (3.29-11.43) H 05/07/25 07:31 RBC 5.77 10^6/uL (3.85-5.65) H 05/07/25 07:31 Hgb 16.70 g/dL (11.27-16.99) 05/07/25 07:31 Hct 50.0 % (37-53) 05/07/25 07:31 MCV 86.7 fl (82-101) 05/07/25 07:31 MCH 28.9 pg (27-33) 05/07/25 07:31 MCHC 33.4 g/dL (30-55) 05/07/25 07:31 RDW 13.2 % (12.1-15.1) 05/07/25 07:31 Plt Count 309 10^3/cmm (157-399) 05/07/25 07:31 MPV 10.7 fL (7.4-10.4) H 05/07/25 07:31 Neut % (Auto) 88.1 % 05/07/25 07:31 Lymph % (Auto) 8.3 % 05/07/25 07:31 [place] % (Auto) 2.9 % 05/07/25 07:31 Eos % (Auto) 0.1 % 05/07/25 07:31 Baso % (Auto) 0.2 % 05/07/25 07:31 Neut # (Auto) 12.25 10^3/uL (1.8-7.7) H 05/07/25 07:31 Lymph # (Auto) 1.2 10^3/uL (0.8-4.8) 05/07/25 07:31 [place] # (Auto) 0.4 10^3/uL (0.2-0.9) 05/07/25 07:31 Eos # (Auto) 0.0 10^3/uL (0.0-0.8) 05/07/25 07:31 Baso # (Auto) 0.0 10^3/uL (0.0-0.1) 05/07/25 07:31 Nucleated RBC % (auto) 0 % 05/07/25 07:31 Nucleated RBCs # 0.0 /100WBC 05/07/25 07:31 Sodium 135 mmol/L (136-145) L 05/07/25 07:31 Potassium 4.1 mmol/L (3.5-5.1) 05/07/25 07:31 Chloride 100 mmol/L (98-107) 05/07/25 07:31 Carbon Dioxide 24 mmol/L (22-29) 05/07/25 07:31 Anion Gap 15.1 (5-19) 05/07/25 07:31 BUN 9 mg/dL (6-20) 05/07/25 07:31 Creatinine 0.8 mg/dL (0.7-1.2) 05/07/25 07:31 GFR Calculation 118.8 mL/min (90-130) 05/07/25 07:31 Glucose 121 mg/dL (65-115) H 05/07/25 07:31 Calculated Osmolality 280 mOsm/kg (285-295) L 05/07/25 07:31 Calcium 9.6 mg/dL (8.5-10.5) 05/07/25 07:31 Total Bilirubin 0.6 mg/dL (0.15-1.2) 05/07/25 07:31 AST 16 U/L (0-40) 05/07/25 07:31 ALT 19 U/L (0-41) 05/07/25 07:31 Alkaline Phosphatase 122 U/L (40-130) 05/07/25 07:31 Total Protein 8.2 g/dL (6.6-8.7) 05/07/25 07:31 Albumin 4.6 g/dL (3.5-5.2) 05/07/25 07:31 Globulin 3.6 g/dL (1.3-4.6) 05/07/25 07:31 Lipase 16 U/L (13-60) 05/07/25 07:31 All radiology interpretation(s) finalized by discharge Discharge Plan Discharge Patient Disposition: Home Clinical Impression: Abdominal pain Condition: Stable Prescriptions: New hydrocodone-acetaminophen 5-325 mg tablet 1 tab PO Q6H PRN (Reason: pain) Qty: 14 0RF ondansetron 4 mg tablet,disintegrating 4 mg PO Q6H PRN (Reason: nausea and vomiting) Qty: 14 0RF No Action ondansetron 4 mg tablet,disintegrating 4 mg PO Q8H PRN (Reason: nausea and vomiting) 7 Days Qty: 21 0RF Discharge Orders: Discharge ED (Routine); Ordered 05/07/25 Ordered By: Ish Singh Referrals: Jeramy Paris DO [Primary Care Provider, Family Practice] Rob Garrett MD [Physician, General Surgery] - 4-7 days Discharge Diet: Advance as tolerated Discharge Activity: Resume usual activity Patient Instructions: Abdominal Pain (ED) Print Language: [place] Coding Level of Care Code ED [employer] for Carlos Mckeon
[2025-05-07 07:40] LABS: Hematocrit 50.0 % (37-53); Hemoglobin 16.70 g/dL (11.27-16.99); Mean Corpuscular HGB Conc 33.4 g/dL (30-55); Mean Corpuscular Hemoglobin 28.9 pg (27-33); Mean Corpuscular Volume 86.7 fl (82-101); Nucleated Red Blood Cells % 0 %; Platelet Count 309 10^3/cmm (157-399); Red Blood Count 5.77 10^6/uL (3.85-5.65); White Blood Count 13.90 10^3/uL (3.29-11.43)
[2025-05-07] MEDS: morphine 4 mg/mL SDV 1 mL IVP (07:46)
[2025-05-07] MEDS: ondansetron 2 mg/ML SDV 2 mL 4 MG IVP (07:46)
[2025-05-07 07:59] LABS: Alanine Aminotransferase 19 U/L (0-41); Albumin Level 4.6 g/dL (3.5-5.2); Alkaline Phosphatase 122 U/L (40-130); Anion Gap 15.1 (5-19); Aspartate Amino Transferase 16 U/L (0-40); Blood Urea Nitrogen 9 mg/dL (6-20); Calcium 9.6 mg/dL (8.5-10.5); Carbon Dioxide 24 mmol/L (22-29); Chloride 100 mmol/L (98-107); Globulin 3.6 g/dL (1.3-4.6); Glucose 121 mg/dL (65-115); Lipase 16 U/L (13-60); Osmolality Calculated 280 mOsm/kg (285-295); Potassium 4.1 mmol/L (3.5-5.1); Sodium 135 mmol/L (136-145); Total Protein 8.2 g/dL (6.6-8.7)
[2025-05-07] MEDS: iohexol 350 mg/mL 500 mL Btl (per mL) IV (08:07)
[2025-05-07 09:16] VITALS: BP 147/100; PULSE 78; O2SAT 99
== END 2025-05-07 09:21 | disposition home or self-care (01) ==
PROVIDERS: Emergency Provider Emergency Medicine; PCP Family Medicine
DX: R10.9 Unspecified abdominal pain (principal)
CPT/HCPCS: 74177; 80053; 83690; 85025; 96374; 96375; 99285; J2270; J2405